=== PATIENT | male | born 1985 | race Caucasian/White ===

== ENCOUNTER 2018-02-10 13:05 | Emergency (ER) | payer OTHER, MEDICAID, SELFPAY ==
[2018-02-10 13:06] VITALS: BP 139/76; PULSE 118; RESP 18; TEMP 37.1; O2SAT 96; BMI 42.4
--- NOTE | 2018-02-10 13:42 | ED.VISSUMM ---
- ER Visit Summary Date of Service: 02/10/18 Chief Complaint: Cellulitis History of Present Illness: The patient is a 32 M presenting with right upper extremity cellulitis. Patient states he noticed what he thought was a bite yesterday on his right elbow. He went to urgent care and was started on cephalexin. He states today he noted that the redness was spreading up his arm. He called his primary care physician's office and was advised to come to the ED for further evaluation. He has had temperatures up to 100.7 at home with chills. He is a diabetic. No other complaints. Physical Examination: Vitals are stable. Patient is afebrile. Alert no acute distress. HEENT exam is unremarkable. Neck is supple. Lungs are clear and equal bilaterally. Heart is regular rate and rhythm. Abdomen is soft nontender nondistended. Extremities erythema of right elbow with active full range of motion. No fluctuance. Mild proximal streaking. Neurovascularly intact distally. Skin is warm and dry. No focal neurologic deficit. Remainder of exam is unremarkable. Emergency Department Course and Treatment: Patient is given clindamycin IV. CBC, chemistries unremarkable other than glucose 184. Line is drawn around the redness with a skin marker. He is advised to watch for worsening redness. He is given a prescription for clindamycin. Advised follow-up with his primary care physician as scheduled at appointment tomorrow. Advised return to ED if worsening complaints. Disposition: Discharge home Impression: Right upper extremity cellulitis This note was generated with [employer] dictation software. It may contain incorrect words, spelling, and punctuation that were not noted in review of the chart prior to signing ED Disposition - Plan for ED Patient: Chief Complaint: Cellulitis Referrals: Nati Garrett, AMANDA-C [Primary Care Provider] -
[2018-02-10 14:03] LABS: Absolute Lymphocyte Count 1.91 X10^3/ul (0.83-4.51); Absolute Neutrophil Count 5.2 X10^3/uL (2.0-7.7); Basophil# 0.04 X10^3/uL; Basophil% 0.5 % (0-1); Eosinophils% 5.9 % (0-5); Hematocrit 48.9 % (40-54); Lymphocyte # 1.91 X10^3/ul (4.0); Lymphocyte % 22.4 % (19-41); Mean Corp Hgb Conc 34.8 g/gl (32-36); Mean Corpuscular Hgb 31.1 pg (27.0-32.0); Mean Corpuscular Volume 89.6 fL (80-94); Mean Platelet Vol. 11.1 fl (6.2-12.0); Monocyte# 0.85 X10^3/uL; Neutrophil # 5.18 X10^3/uL (2.7-7.7); Neutrophil % 60.8 % (47-70); Platelet Count 186 K/mm3 (150-450); RBC Distribution Width CV 12.6 % (11.6-14.6); RBC Distribution Width SD 40.6 fl (35.1-43.9); Red Blood Count 5.46 M/mm3 (4.6-6.2); White Blood Count 8.5 K/mm3 (4.4-11.0)
[2018-02-10 14:04] LABS: POSITIVE COUNT NO; POSITIVE DIFFERENTIAL NO; POSITIVE MORPHOLOGY NO
[2018-02-10 14:18] LABS: Anion Gap 6 (5-15); BUN 8 mg/dL (7-18); BUN/Creat Ratio 8.5 RATIO (10-20); Chloride 103 mmol/L (98-107); Creatinine, Serum 0.94 mg/dL (0.70-1.30); EST Glomerular Filtration Rate 100 mL/min (>60); Est Glom Filt Rate - Afr Amer 121 mL/min (>60); Estimated Creatinine Clearance 111.17 ml/min; Glucose 184 mg/dL (74-106); Potassium 3.9 mmol/L (3.5-5.1); Sodium Level 138 mmol/L (136-145)
[2018-02-10 15:23] VITALS: BP 147/73; PULSE 102; RESP 20; O2SAT 98
--- NOTE | 2018-02-10 15:44 | ED.DEP ---
ED Disposition - Plan for ED Patient: Chief Complaint: Cellulitis Instructions: Discharge Instructions for Cellulitis Prescriptions: Clindamycin [Cleocin] 300 mg PO 4X/DAY #80 capsule Referrals: Nati Garrett NP-C [Primary Care Provider] -
== END 2018-02-10 17:22 | disposition home or self-care (01) ==
LOC: ED 13:29
PROVIDERS: Emergency Provider Emergency Medicine; Family Provider Nurse Practitioner Adult Health; PCP Nurse Practitioner Adult Health
DX: L03.113 Cellulitis of right upper limb (principal); E11.9 Type 2 diabetes mellitus without complications
CPT/HCPCS: 80048; 85025; 96365; 99283; A4216

== ENCOUNTER 2018-06-09 06:36 | Day surgery (SDC) | payer OTHER, SELFPAY ==
[2018-06-09] MEDS: Oxymetazoline 0.05% 1 SPRAY SPRAY.BTL 15 SPRAY (07:08)
[2018-06-09] MEDS: Ciprofloxacin 0.3% 2.5ml Bottle 1 DRP (07:08)
[2018-06-09 07:25] VITALS: BP 140/96; PULSE 96; RESP 16; TEMP 36.6; O2SAT 96; BMI 41.1
[2018-06-09 07:40] LABS: Bedside Glucose 140 mg/dL (70-110)
--- NOTE | 2018-06-09 08:03 | DCINST_ITS ---
You will use the following diet at home:: No restrictions Discharge Activity: Return to Normal Activity Additional Dressing/Incision Instructions:: use the given ear drops in the left ear - 3 drops twice daily for 48 hrs Allergies/Adverse Reactions: Allergies No Known Allergies Allergy (Verified 06/02/18 14:39) Medications to take at Discharge Aspirin E.C. [Ecotrin] 81 mg PO DAILY@0800 06/02/18 Bupropion HCl [Bupropion HCl Sr] 150 mg PO DAILY 06/02/18 Lisinopril [Prinivil] 10 mg PO DAILY 06/02/18 Meloxicam [Mobic] 7.5 mg PO DAILY 06/02/18 Metformin HCl [Glucophage] 1,000 mg PO BIDCM 06/02/18 Pravastatin Sodium 40 mg PO DAILY 06/02/18 Sitagliptin Phosphate [Januvia] 50 mg PO DAILY 06/02/18 Primary Care Physician: Nati Garrett NP-C [Primary Care Provider] - Test Results: Test results from this visit will be discussed in further detail at your follow- up appointment, if applicable. Please Follow Up With: Pierce Suárez MD When: 3 weeks
--- NOTE | 2018-06-09 08:03 | PCM.OPRPT ---
Problem List (1) Chronic serous otitis media of left ear Status: Chronic (2) Eustachian tube dysfunction Status: Chronic Report of Operation Date of Procedure: 06/09/18 Pre-Operative Diagnosis: 1. chronic serous otitis, left ear. 2. eustachian tube dysfunction, left ear Post-Operative Diagnosis: 1. chronic serous otitis, left ear. 2. eustachian tube dysfunction, left ear Surgery/Procedure Performed:: 1. placement pressure equalization tube, left ear. 2. eustachian tube dilation, left ear Type of Anesthesia:: General Description of Procedure: on the day of the procedure, after appropriate informed consent was obtained, the patient was brought to the operating room and placed in supine position on the operating table. he was placed under general endotracheal anesthesia by the anesthesiologist. the tube was secured, the eyes were taped. the left ear was examined by the binocular operating microscope. a speculum was placed. the tympanic membrane was viewed in its entirety and found to be intact. the tympanic membrane was adherent to the promontory. a large mucoid effusion was suctioned and T-tube was placed. the nose was decongested with oxymetazoline soaked pledgets. a zero degree endoscope was inserted into the left nasal cavity and the eustachian tube orifice was visualized. the acclarent AERA system was advanced gently into the eustachian tube with no resistance until a soft stop was felt. it was inflated to 12 samir for 2 minutes. the balloon was deflated and retracted. there was no false passage. the patient was awoken from anesthesia and transferred to the PACU in stable condition.
[2018-06-09 08:28] VITALS: BP 123/85; BP 140/96; PULSE 108; RESP 20; TEMP 36.5; O2SAT 97
[2018-06-09 08:43] VITALS: BP 120/89; BP 140/96; PULSE 82; RESP 18; O2SAT 94
[2018-06-09 08:58] VITALS: BP 120/81; BP 140/96; PULSE 86; RESP 18; O2SAT 95
[2018-06-09 09:03] VITALS: BP 120/77; BP 140/96; PULSE 90; RESP 18; TEMP 36.8; O2SAT 93
[2018-06-09 09:31] VITALS: BP 140/96
== END 2018-06-09 09:32 | disposition home or self-care (01) ==
LOC: SDC 06:39 → AC 06:40
PROVIDERS: Family Provider Nurse Practitioner Adult Health; PCP Nurse Practitioner Adult Health; Referring Provider Otolaryngology; Visit Provider Otolaryngology
PROC: (CPT 69799; principal; 2018-06-09 07:55)
DX: H65.22 Chronic serous otitis media, left ear (principal); H69.82 Other specified disorders of Eustachian tube, left ear; E78.00 Pure hypercholesterolemia, unspecified; E11.9 Type 2 diabetes mellitus without complications; F32.9 Major depressive disorder, single episode, unspecified; Z79.899 Other long term (current) drug therapy; Z79.82 Long term (current) use of aspirin; Z79.84 Long term (current) use of oral hypoglycemic drugs; I10 Essential (primary) hypertension; F17.210 Nicotine dependence, cigarettes, uncomplicated; H90.0 Conductive hearing loss, bilateral
CPT/HCPCS: 00126; 69436; 82962; J7120; J2405

== ENCOUNTER 2022-12-23 09:51 | Emergency (ER) | payer OTHER, SELFPAY ==
[2022-12-23 09:53] VITALS: BP 141/91; PULSE 108; RESP 16; TEMP 35.6; O2SAT 100; BMI 42.3
--- NOTE | 2022-12-23 10:57 | ED.RN ---
PT REFUSED NORCO DUE TO NOT HAVING A RIDE
--- NOTE | 2022-12-23 11:09 | RAD_ITS ---
STUDY: X-RAY - PELVIS AND RIGHT HIP REASON FOR EXAM: Male, 37 years old. Right hip pain. No evidence of trauma. TECHNIQUE: 3 views of the pelvis and hip. COMPARISON: None. FINDINGS: There is a non-specific bowel gas pattern. Normal visualized soft tissue structures. Normal bilateral iliac wings, sacroiliac joints and visualized sacrum. Normal bilateral superior and inferior pubic rami. Normal pubic symphysis. Normal bilateral ischial tuberosities. Normal visualized femoral head. Normal acetabulum. Normal hip joint. Calcific density overlying the greater trochanter of the proximal right femur suggests a possible calcific bursitis. RAD/HIP, UNI W/ Pelvis 2-3 Views IMPRESSION: Findings suggestive of calcific bursitis over lying the right greater trochanter Electronically Signed: Cb Marinelli MD at 11:21 EDT ,
--- NOTE | 2022-12-23 11:51 | ED.VIS.LOWEX ---
HPI History of Present Illness HPI Narrative: Patient presents with right hip pain that began today. Patient states he woke up with the pain this morning. Patient denies any trauma or injury. Patient states the pain is sharp. Patient states pain is worse with any weightbearing. Patient states it is better with rest. Patient denies any paresthesias or weakness. Patient denies any back pain. Patient denies any radiation of the pain. Chief Complaint: Lower Extremity Injury Informant: patient Onset/Context/Timing Onset: Today Context: Sudden Onset Timing: Continuous Quality of Pain: Sharp Location: Right hip Worsened by: Weightbearing, certain movements Relieved by: Rest Associated Symptoms Associated Symptoms: Negative for Parasthesia, Weakness or Loss of Funtion [facility] Medical History (Updated 12/23/22 @ 11:[address] Dontae Silva DO) Diabetes Hypercholesterolemia Hypertension Medical History no medical history Home Medications aspirin 81 mg tablet,delayed release 81 mg PO DAILY@0800 06/02/18 [History Last Taken 05/18/18] bupropion HCl (smoking deter) 150 mg tablet,12 hr sustained-release(smoking deterrent) 150 mg PO DAILY 06/02/18 [History Last Taken Unknown] lisinopril 10 mg tablet (Prinivil) 10 mg PO DAILY 06/02/18 [History Last Taken Unknown] meloxicam 7.5 mg tablet 7.5 mg PO DAILY 06/02/18 [History Last Taken Unknown] metformin 500 mg tablet 1,000 mg PO BIDCM 06/02/18 [History Last Taken Unknown] pravastatin 40 mg tablet 40 mg PO DAILY 06/02/18 [History Last Taken Unknown] sitagliptin phosphate 50 mg tablet (Januvia) 50 mg PO DAILY 06/02/18 [History Last Taken Unknown] hydrocodone-acetaminophen 5-325mg 5mg-325mg 1 tab PO Q6H PRN PRN Pain 3 days #10 TABLETS 12/23/22 [Rx Last Taken Unknown] Allergy/AdvReac Type Severity Reaction Status Date / Time No Known Allergies Allergy Verified 06/02/18 14:39 Social History Smoking Status: Current every day smoker tobacco type: cigarettes ROS ROS ED Constitutional Constitutional ED: Denies chills or fever(s) Eyes Eyes: Denies blurry vision or change in vision ENT ENT ED: Denies rhinorrhea or sore throat Cardiovascular Cardiovascular: Denies chest pain or palpitations Respiratory/Chest Respiratory/Chest: Denies cough or dyspnea Gastrointestinal Gastrointestinal: Denies nausea or vomiting Genitourinary Genitourinary ED: Denies dysuria or hematuria Musculoskeletal Musculoskeletal: Denies back pain or neck pain Integumentary Denies abscess or rash Neurologic Neurologic: Denies headache(s) or weakness Allergic/Immunologic Allergic/Immunologic ED: Denies mouth swelling or urticaria EXAM Physical Exam Const Vital Signs: 12/23/22 09:53 Temperature 96.0 F L Temperature Source Temporal Pulse Rate 108 H Respiratory Rate 16 Blood Pressure 141/91 H Blood Pressure Mean 107 Pulse Ox 100 Oxygen Delivery Method Room Air Positive well nourished, well developed and obese General Appearance ED: well developed and NAD Nutritional Appearance: obese HEENT Reports moist mucous membranes Neck full ROM and supple Extremity Extremity Narrative: TenderThere is tenderness over the lateral aspect of the right hip. There is also tenderness in the right inguinal area. There is no mass noted. There is no hernia noted. There is no tenderness over the lumbar spine or paraspinal muscles. There is no bony crepitance or step-off. Range of motion was limited in all motions of the right hip secondary to pain. Strength is 5/5 bilaterally in the lower extremities. There are no sensory deficits noted. Pedal pulses are equal bilaterally. Neuro oriented x3, CN's II-XII intact bilaterally, moves all extremities and no sensory deficits noted Sensorium / Orientation: alert Motor Exam: strength 5/5 throughout MDM MDM MDM Narrative Medical decision making narrative: Differential diagnosis includes degenerative arthritis, bursitis, and occult fracture. X-rays of the right hip will be obtained to assess for occult fracture. Radiography Diagnostic Testing: Clinical Impression(s) from Imaging Studies Hip/Pelvis X-Ray 12/23/22 11:09 IMPRESSION: Findings suggestive of calcific bursitis over lying the right greater trochanter Electronically Signed: Cb Marinelli MD at 11:21 EDT , X-rays of the right hip were obtained. There are 3 views. On my independent interpretation, there is no acute fracture noted. There is no dislocation noted. Radiologist also interpreted the x-rays and noted findings suggestive of calcific bursitis over the right greater trochanter. Treatment and Re-Evaluation Narrative: Patient was advised of his findings. Patient was instructed use ice to the area. Patient was given a prescription for a short course of [place]. Patient was instructed to continue his meloxicam as prescribed. Patient was instructed to follow-up with his primary care physician in 5 to 7 days. Patient understood and was agreeable with the plan. All questions were answered. Discharge Plan Triage Chief Complaint: Lower Extremity Injury ED Provider: Dontae Silva Dx/Rx/DC Orders Clinical Impression: Greater trochanteric bursitis of right hip Instructions: ED Bursitis Prescriptions: New hydrocodone-acetaminophen [hydrocodone-acetaminophen] 5-325 mg tablet 1 tab PO Q6H PRN PRN (Reason: Pain) 3 Days Qty: 10 0RF No Action metformin 500 MG tablet 1,000 mg PO BIDCM pravastatin 40 MG tablet 40 mg PO DAILY aspirin 81 MG tablet 81 mg PO DAILY@0800 meloxicam 7.5 MG tablet 7.5 mg PO DAILY lisinopril [Prinivil] 10 MG tablet 10 mg PO DAILY sitagliptin phosphate [Januvia] 50 MG tablet 50 mg PO DAILY bupropion HCl (smoking deter) 150 MG tablet extended release 12 hr 150 mg PO DAILY Primary Care Provider: Daryl Michael Referrals: Daryl Michael DO [Primary Care Provider] - 5-7 Days Disposition Disposition: Home, Self Care
== END 2022-12-23 12:09 | disposition home or self-care (01) ==
PROVIDERS: Emergency Provider Emergency Medicine; PCP Student in an Organized Health Care Education/Training Program; Visit Provider Emergency Medicine
DX: M70.61 Trochanteric bursitis, right hip (principal); E11.9 Type 2 diabetes mellitus without complications; E78.00 Pure hypercholesterolemia, unspecified; F17.210 Nicotine dependence, cigarettes, uncomplicated; I10 Essential (primary) hypertension; Z79.899 Other long term (current) drug therapy; Z79.84 Long term (current) use of oral hypoglycemic drugs
CPT/HCPCS: 73502; 99283

== ENCOUNTER 2024-01-22 23:36 | Emergency (ER) | payer OTHER, SELFPAY ==
[2024-01-22 23:36] VITALS: BP 129/87; PULSE 96; RESP 20; TEMP 36.3; O2SAT 96; BMI 43.4
--- NOTE | 2024-01-23 00:20 | ED.VIS.BACK ---
HPI History of Present Illness Chief Complaint: Flank Pain Informant: patient Onset/Context/Timing Onset: Yesterday Context: Sudden Onset (while sitting at work) Timing: Continuous Quality: Aching Location: Lumbar (middle and left by my kidney) Current Severity: Moderate Maximum Severity: Moderate Worsened by: improves with Movement Relieved by: Remaining Still Associated Symptoms Associated Symptoms: Negative for Numbness, Tingling, Radiation to Right Leg, Radiation to Left Leg, Abdominal Pain, Dysuria, Unable to Ambulate, Unable to Transfer, Urinary Retention, Urinary Incontinence, Constipation or Fecal Incontinence Narrative Narrative: 38-year-old male states yesterday 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 He states it was more to the left by his kidney, but all day today it has been more toward the middle. It hurts a lot more to move in certain ways and is better when he is remaining still. There is no radiation to his flank or abdomen and he has no urinary symptoms. He is concerned as is his kidney and that he has a kidney stone. There is no radiation down his legs, saddle anesthesia, bowel or bladder dysfunction. [facility] Medical History Hypercholesterolemia Hypertension Diabetes Home Medications ?Medication ?Instructions ?Recorded ?Last Taken ?Type aspirin 81 mg tablet,delayed 81 mg PO DAILY@0800 06/02/18 05/18/18 History release bupropion HCl (smoking deter) 150 150 mg PO DAILY 06/02/18 Unknown History mg tablet,12 hr sustained-release(smoking deterrent) lisinopril 10 mg tablet (Prinivil) 10 mg PO DAILY 06/02/18 Unknown History meloxicam 7.5 mg tablet 7.5 mg PO DAILY 06/02/18 Unknown History metformin 500 mg tablet 1,000 mg PO BIDCM 06/02/18 Unknown History pravastatin 40 mg tablet 40 mg PO DAILY 06/02/18 Unknown History sitagliptin phosphate 50 mg tablet 50 mg PO DAILY 06/02/18 Unknown History ([place]uvia) hydrocodone-acetaminophen 5-325mg 1 tab PO Q6H PRN PRN Pain 3 days 12/23/22 Unknown Rx 5mg-325mg #10 TABLETS naproxen 500 mg tablet 500 mg PO BID PRN #20 tabs 01/23/24 Unknown Rx Allergy/AdvReac Type Severity Reaction Status Date / Time No Known Allergies Allergy Verified 01/22/24 23:38 Social History Smoking Status: Current every day smoker tobacco type: cigarettes ROS ROS ED Constitutional Constitutional ED: Denies chills or fever(s) Eyes Eyes: Denies change in vision or diplopia ENT ENT ED: Denies rhinorrhea or sore throat Cardiovascular Cardiovascular: Denies chest pain or palpitations Respiratory/Chest Respiratory/Chest: Denies cough or dyspnea Gastrointestinal Gastrointestinal: Denies abdominal pain, diarrhea, nausea or vomiting Genitourinary Genitourinary ED: Denies dysuria or hematuria Musculoskeletal Musculoskeletal: Reports back pain; Denies neck pain Integumentary Denies abscess or rash Neurologic Neurologic: Denies headache(s), paresthesias or weakness Psychiatric Psychiatric: Denies anxiety or suicidal thoughts EXAM Physical Exam Const Vital Signs: 01/22/24 23:36 Temperature 97.4 F L Temperature Source Temporal Pulse Rate 96 Respiratory Rate 20 H Blood Pressure 129/87 H Blood Pressure Mean 101 Pulse Ox 96 Oxygen Delivery Method Room Air Positive well nourished and well developed General Appearance ED: well developed and NAD HEENT Reports moist mucous membranes normocephalic and atraumatic Eyes PERRL and EOMs intact bilaterally Neck full ROM and supple Resp clear to auscultation bilaterally Back/Spine no CVA tenderness, normal to inspection and no thoracic nor lumbar tenderness General Back: other FROM Extremity normal to inspection General Extremety ED: Negative for edema General Extremity: Negative for edema Neuro oriented x3, CN's II-XII intact bilaterally and no sensory deficits noted Sensorium / Orientation: awake and alert Motor Exam: strength 5/5 throughout Skin no rashes or lesions noted and no wounds MDM MDM MDM Narrative Medical decision making narrative: Given that this patient has significant musculoskeletal features of this pain, I think this is much less likely to be renal related or urolithiasis/renal colic. I did a screening urinalysis, it shows no microscopic hematuria or red blood cells, just glycosuria. Meanwhile he was given a dose of Toradol which she states really helped. I offered a dose of Norflex but he drove and does not want to feel sleepy. He states he has cyclobenzaprine at home to use and it has worked for muscle spasms in the past which it sounds like he is having. Given a prescription of naproxen. Meloxicam is on his medication list I am advising him to not take both at the same time, and to follow-up with his doctor. Sacroiliac dysfunction is in the differential diagnosis as well, especially since I am not able to reproduce the pain on exam which is common with sacroiliac dysfunction. Lab Data Attestation: I reviewed the patient's lab results. Labs: Laboratory Results - last 24 hr 01/22/24 23:51 Urine Color Yellow Urine Clarity Clear Urine pH 8.0 Ur Specific [place] 1.015 Urine Protein Negative Urine Glucose (UA) 1000 H Urine Ketones Negative Urine Occult Blood Negative Urine Nitrite Negative Urine Bilirubin Negative Urine Urobilinogen Normal Ur Leukocyte Esterase Negative Urine RBC 0 SEEN Urine WBC 0 SEEN Ur Squamous Epith Cells 0-5 SEEN Urine Bacteria 0 SEEN Urine Mucus 0 SEEN Discharge Plan Triage Chief Complaint: Flank Pain ED Provider: Christos Dodge Dx/Rx/DC Orders Clinical Impression: Acute lumbar myofascial strain Instructions: Understanding Sacroiliac Strain, ED Back Sprain/Strain Prescriptions: New naproxen 500 mg tablet 500 mg PO BID PRN Qty: 20 0RF Continued metformin 500 MG tablet 1,000 mg PO BIDCM pravastatin 40 MG tablet 40 mg PO DAILY aspirin 81 MG tablet 81 mg PO DAILY@0800 lisinopril [Prinivil] 10 MG tablet 10 mg PO DAILY sitagliptin phosphate [Januvia] 50 MG tablet 50 mg PO DAILY bupropion HCl (smoking deter) 150 MG tablet extended release 12 hr 150 mg PO DAILY hydrocodone-acetaminophen 5-325 mg tablet 1 tab PO Q6H PRN PRN (Reason: Pain) 3 Days Qty: 10 0RF Held meloxicam 7.5 MG tablet 7.5 mg PO DAILY Hold Instructions: While taking prescription naproxen Primary Care Provider: Daryl Michael Referrals: Daryl Michael DO [Primary Care Provider] - 1 Week if not improving Print Language: Romansh Disposition Disposition: Home, Self Care
[2024-01-23 00:24] LABS: Bacteria 0 SEEN /hpf (None Seen); Mucous, Urine 0 SEEN /hpf (<or=2+); Red Blood Cells-Urine 0 SEEN /hpf (0-5); White Blood Cells 0 SEEN /hpf (0-5)
[2024-01-23] MEDS: Ketorolac 30 MG/ML Syringe IV (00:25)
[2024-01-23 00:27] LABS: Color, Urine Yellow (Yellow); Glucose, Dipstick 1000 mg/dl (Normal); Ketone-Dipstick Negative (Negative); Leukocyte Esterase-Dipstick Negative /ul (Negative); Nitrite-Dipstick Negative (Negative); Occult Blood-Urine Negative /ul (Negative); Protein-Dipstick Negative (Negative); Specific Gravity, Urine 1.015 (1.002-1.030); Urine Bilirubin Dipstick Negative (Negative); Urine Clarity Clear (Clear); Urine Urobilinogen Normal (Normal)
[2024-01-23 01:11] LABS: Squamous Epithelial Cells - UA 0-5 SEEN /hpf (0-5)
== END 2024-01-23 02:23 | disposition home or self-care (01) ==
PROVIDERS: Emergency Provider Emergency Medicine; PCP Student in an Organized Health Care Education/Training Program; Visit Provider Emergency Medicine
DX: S39.012A Strain of muscle, fascia and tendon of lower back, initial encounter (principal); E11.9 Type 2 diabetes mellitus without complications; F17.210 Nicotine dependence, cigarettes, uncomplicated; E78.00 Pure hypercholesterolemia, unspecified; Z79.82 Long term (current) use of aspirin; Z79.899 Other long term (current) drug therapy; Z79.84 Long term (current) use of oral hypoglycemic drugs
CPT/HCPCS: 81001; 96374; 99282; A4216

== ENCOUNTER 2024-06-14 23:11 | Emergency (ER) | payer OTHER, SELFPAY ==
[2024-06-14 23:12] VITALS: BP 138/87; PULSE 108; RESP 16; TEMP 36.6; O2SAT 98; BMI 40.8
--- NOTE | 2024-06-15 00:07 | EDS_ITS ---
HPI History of Present Illness Chief Complaint: General Illness [facility] Medical History (Updated 06/14/24 @ 23:34 by Destiny Pérez) Alcohol abuse Marijuana smoker Hypercholesterolemia Hypertension Diabetes Home Medications ?Medication ?Instructions ?Recorded ?Last Taken ?Type bupropion HCl (smoking deter) 150 150 mg PO DAILY 06/02/18 Unknown History mg tablet,12 hr sustained-release(smoking deterrent) metformin 500 mg tablet 1,000 mg PO BIDCM 06/02/18 Unknown History pravastatin 40 mg tablet 40 mg PO DAILY 06/02/18 Unknown History dulaglutide 1.5 mg/0.5 mL 1.5 mg subcut QWEEK 06/14/24 06/14/24 History subcutaneous pen injector (Trulicity) lisinopril 10 mg tablet 10 mg PO DAILY 06/14/24 Unknown History Allergy/AdvReac Type Severity Reaction Status Date / Time No Known Allergies Allergy Verified 06/14/24 23:16 Social History Smoking Status: Current every day smoker tobacco type: cigarettes EXAM Physical Exam Const Vital Signs: 06/14/24 23:12 06/14/24 23:30 06/15/24 01:12 Temperature 97.8 F Temperature Source Oral Pulse Rate 108 H 87 Respiratory Rate 16 18 Respiratory Effort Normal Non-Labored Respiratory Pattern Normal Blood Pressure 138/87 H 145/75 H Blood Pressure Mean 104 98 Pulse Ox 98 97 Oxygen Delivery Method Room Air Room Air 06/15/24 02:10 06/15/24 02:16 06/15/24 02:30 Temperature Temperature Source Pulse Rate 67 Respiratory Rate 18 Respiratory Effort Respiratory Pattern Blood Pressure 129/76 H Blood Pressure Mean 90 Pulse Ox 97 94 Oxygen Delivery Method Room Air Room Air 06/15/24 04:00 06/15/24 05:17 Temperature 98 F Temperature Source Pulse Rate 75 86 Respiratory Rate 12 14 Respiratory Effort Respiratory Pattern Blood Pressure 130/86 H 121/77 H Blood Pressure Mean 100 91 Pulse Ox 95 96 Oxygen Delivery Method Room Air MDM MDM MDM Narrative Medical decision making narrative: HISTORY OF PRESENT ILLNESS: 38-year-old male presents with lightheadedness, dizziness, nausea, anxiety and feeling foggy for the last 3 weeks. He further states today developed chest tightness which prompted his visit. Denies syncope. The patient denies recent surgery in the last 4 weeks or immobilization in the last 3 days, denies previous diagnosis of DVT or PE, hemoptysis, unilateral leg swelling or malignancy with treatment the last 6 months or palliative. No estrogen use noted. Patient denies sudden onset of pain, no tearing sensation, no migratory symptoms, no new numbness, weakness or loss of sensation. Patient denies family history or personal history of Connective tissue disorders (Marfan's Syndrome, Ernie Danlos etc). Denies cough fever chills. Denies leg swelling, orthopnea or paroxysmal nocturnal dyspnea. No SI, no HI. Denies focal numbness weakness loss sensation slurred speech or facial drooping. REVIEW OF SYSTEMS: Pertinent positives: Chest tightness Pertinent negatives: Syncope, focal weakness, vomiting, cough, leg swelling PHYSICAL EXAM: Nursing triage notes reviewed, Vital signs reviewed Constitutional: please see mdm HENT: MMM Eyes: Pupils equal round and reactive to light, Extraocular muscles intact Neck: No stridor, no JVD, full neck ROM Lungs: Clear to auscultation, No wheezing or rales. No increased work of breathing, no conversational dyspnea, no accessory muscle use, no nasal flaring. No respiratory distress noted Heart: Regular rate and rhythm, No murmurs, No rubs and No gallops, 2+ distal pulses (radial, femoral, posterior tibial) in all extremities Abdomen: Soft, there is no tenderness, rigidity, rebound or guarding, no obvious peritoneal signs, no palpable pulsatile abdominal masses, no auscultated abdominal bruit : No CVAT Extremities: No edema Neuro: Alert and oriented x3, neuro exam at baseline, cranial nerves II through XII are intact. No pain with extraocular muscle movement. There is negative test of skew. 5 of 5 strength in upper and lower extremities in flexion extension. Intact sensation to light touch in upper and lower extremity dermatomes. No truncal or extremity ataxia. No dysdiadochokinesia. Normal gait. 2+ reflexes in upper and lower extremities. No meningeal signs. Negative Babinski. NIH of 0. Skin: No rash or lesions noted MEDICAL DECISION MAKING: Chief Complaint: As per HPI External records reviewed: Reviewed the patient's allergies, problem list, vital signs, current medications, prior cardiovascular testing, prior imaging Factors affecting care: Hypertension, type 2 diabetes, hyperlipidemia Social determinants of health: none History obtained from others: none Consults: none [facility] Narrative: Patient was initially tachycardic rate of 108 otherwise afebrile and nontoxic- appearing. Exam without focal cardiopulmonary abnormality. I considered the following differential diagnosis: ACS, arrhythmia, anemia, dehydration, electrolyte disturbance, CVA, PE, aortic dissection. Posterior circulation CVA. Patient's history and physical exam ar were not consistent with PE or aortic dissection. No indication for advanced imaging of the chest at this time Patient's clinical exam was not consistent with posterior cervical CVA. NIH was 0 Patient's clinical exam was unremarkable I obtained a broad lab and imaging workup to further elucidate the etiology of the patient's complaints ALL IMAGES (IF OBTAINED) HAVE BEEN PERSONALLY REVIEWED AND INTERPRETED BY MYSELF. EKG with normal sinus rhythm, normal axis, no intervals, no STEMI High-sensitivity troponin is negative, no evidence of myocardial ischemia CBC without leukocytosis, severe anemia, no thrombocytopenia. BMP without evidence of significant electrolyte abnormalities, no anion gap, no acute kidney injury. High-sensitivity troponin is negative, no evidence of myocardial ischemia Awaiting delta troponin, delta troponin negative as well On Re-evaluation the patient's initial tachycardia resolved. Chest pain-free. Unclear etiology however unlikely be life-threatening given negative labs images. Patient was given PCP follow-up for further outpatient evaluation. The patient and/or family, caregivers express understanding. The patient and/or family, caregivers agrees with the plan. Shared decision making: I will have a discussion with the patient and or visitors regarding risk/benefi ts of further testing or admission. They will be made aware of of the risk/benefits inherent in this decision they will be given the opportunity to voice understanding. Total critical care time today provided was at least 0 minutes. This excludes separately billable procedures. Critical care time (if documented) is secondary to the patient having high probability of clinically significant/life threatening deterioration in the patient's condition which required my urgent intervention. Impression: 1. Chest pain 2. History of hypertension Dispo: Discharge home This note was generated with [employer] dictation software. It may contain incorrect words, spelling, and punctuation that were not noted in review of the chart prior to signing. Lab Data Labs: Laboratory Results - last 24 hr 06/15/24 06/15/24 02:13 04:19 WBC 7.6 RBC 5.48 Hgb 16.9 H Hct 48.7 MCV 88.9 MCH 30.8 MCHC 34.7 RDW Std Deviation 38.4 RDW Coeff of Camille 11.8 Plt Count 201 MPV 11.0 Immature Gran % (Auto) 0.500 Neut % (Auto) 41.9 L Lymph % (Auto) 37.8 Swisher % (Auto) 13.4 H Eos % (Auto) 5.5 H Baso % (Auto) 0.9 Absolute Neuts (auto) 3.2 Absolute Lymphs (auto) 2.89 Nucleated RBC % 0 Sodium 137 Potassium 3.8 Chloride 106 Carbon Dioxide 28.0 Anion Gap 3 L BUN 11 Creatinine 0.77 Estim Creat Clear Calc 168.44 Est GFR (MDRD) Af Amer 146 Est GFR (MDRD) Non-Af 121 BUN/Creatinine Ratio 14.2 Glucose 101 Calcium 9.2 Troponin I High Sens 4 4 Radiography Diagnostic Testing: Clinical Impression(s) from Imaging Studies Chest X-Ray 06/15/24 01:01 IMPRESSION: Low lung volumes limit the exam. No acute cardiopulmonary abnormality. Electronically Signed: Vladimir Nogueira MD at 2:44 EDT , Discharge Plan Triage Chief Complaint: General Illness ED Provider: Jacob Munguia Dx/Rx/DC Orders Instructions: Chest Pain [facility] Prescriptions: No Action metformin 500 MG tablet 1,000 mg PO BIDCM pravastatin 40 MG tablet 40 mg PO DAILY bupropion HCl (smoking deter) 150 MG tablet extended release 12 hr 150 mg PO DAILY lisinopril 10 mg tablet 10 mg PO DAILY Trulicity 1.5 mg/0.5 mL pen injector 1.5 mg subcut QWEEK Primary Care Provider: Daryl Michael Referrals: Daryl Michael DO [Primary Care Provider] - Activity Restrictions/Additional Instructions: Thank you for trusting us with your care today! Your labs images were reassuring. There is no emergency diagnosis that can be identified. The ultimate cause your symptoms remains unclear. Please take Tylenol (2 pills, 650 mg), ibuprofen (2 pills, 400 mg) every 6 hours as needed for pain and fever control. Please return to the emergency department if your symptoms change or worsen. Please follow with your primary care physician for further outpatient evaluation and management. Print Language: Nauruan Disposition Disposition: Home, Self Care Discharge Date/Time: 06/15/24 05:23
--- NOTE | 2024-06-15 01:01 | EKG12_ITS ---
Test Reason : DYSRHYTHMIA Blood Pressure : */* mmHG Vent. Rate : 84 BPM Atrial Rate : 84 BPM P-R Int : 184 ms QRS Dur : 86 ms QT Int : 368 ms P-R-T Axes : 35 23 49 degrees QTcB Int : 434 ms Normal sinus rhythm Normal ECG Confirmed by ANTHONY MORALES, ETHAN ([id number]), acquisitions editor EDILSON REYES ([id number]) on 06/15/2024 1:11:54 PM Referred By: RENATA Confirmed By: ETHAN CRUZ MD
--- NOTE | 2024-06-15 01:01 | RAD_ITS ---
EXAM: XR CHEST, 1 VIEW CLINICAL INDICATION: chest pain TECHNIQUE: Frontal view of the chest. COMPARISON: No relevant prior studies available. FINDINGS: LUNGS AND PLEURAL SPACES: Low lung volumes limit the exam. No consolidations. No pneumothorax. No effusion. HEART: Unremarkable. Cardiac silhouette not enlarged. MEDIASTINUM: Central airways and mediastinal contour are unremarkable. BONES/JOINTS: Unremarkable. No acute fracture. SOFT TISSUES: Unremarkable. RAD/Chest 1 View (Portable) IMPRESSION: Low lung volumes limit the exam. No acute cardiopulmonary abnormality. Electronically Signed: Vladimir Nogueira MD at 2:44 EDT ,
[2024-06-15 01:12] VITALS: BP 145/75; PULSE 87; RESP 18; O2SAT 97
[2024-06-15 02:16] VITALS: O2SAT 97
[2024-06-15 02:18] LABS: Absolute Lymphocyte Count 2.89 X10^3/uL (0.83-4.51); Absolute Neutrophil Count 3.2 X10^3/uL (2.0-7.7); Basophil# 0.07 X10^3/uL; Basophil% 0.9 % (0-1); Eosinophil# 0.42 X10^3/uL; Eosinophils% 5.5 % (0-5); Hematocrit 48.7 % (40-54); Hemoglobin 16.9 g/dL (13.0-16.5); Lymphocyte # 2.89 X10^3/ul (0.83-4.51); Lymphocyte % 37.8 % (19-41); Mean Corp Hgb Conc 34.7 g/dL (32-36); Mean Corpuscular Hgb 30.8 pg (27.0-32.0); Mean Corpuscular Volume 88.9 fL (80-94); Monocyte# 1.02 X10^3/uL; Monocyte% 13.4 % (0-10); NRBC Flagged by Analyzer 0 % (0-5); Neutrophil % 41.9 % (47-70); Platelet Count 201 K/mm3 (150-450); RBC Distribution Width CV 11.8 % (11.6-14.6); RBC Distribution Width SD 38.4 fl (35.1-43.9); Red Blood Count 5.48 M/mm3 (4.6-6.2); White Blood Count 7.6 K/mm3 (4.4-11.0)
[2024-06-15 02:30] VITALS: BP 129/76; PULSE 67; RESP 18; O2SAT 94
[2024-06-15 02:37] LABS: Anion Gap 3 (5-15); BUN 11 mg/dL (7-18); BUN/Creat Ratio 14.2 RATIO (10-20); Calcium,Total 9.2 mg/dL (8.5-10.1); Chloride 106 mmol/L (98-107); Creatinine, Serum 0.77 mg/dL (0.70-1.30); EST Glomerular Filtration Rate 121 mL/min (>60); Est Glom Filt Rate - Afr Amer 146 mL/min (>60); Estimated Creatinine Clearance 168.44 ml/min; Glucose 101 mg/dL (74-106); Potassium 3.8 mmol/L (3.5-5.1); Sodium Level 137 mmol/L (136-145); Troponin-I HS (w/2H Reflex) 4 pg/mL (3.0-78.0)
[2024-06-15 04:00] VITALS: BP 130/86; PULSE 75; RESP 12; O2SAT 95
[2024-06-15 04:15] LABS: Reflex Troponin-HS? (from REC) Y
[2024-06-15 04:41] LABS: Troponin-I HS 4 pg/mL (3.0-78.0)
[2024-06-15 05:17] VITALS: BP 121/77; PULSE 86; RESP 14; TEMP 36.6; O2SAT 96
== END 2024-06-15 05:23 | disposition home or self-care (01) ==
PROVIDERS: Emergency Provider Emergency Medicine; PCP Student in an Organized Health Care Education/Training Program; Visit Provider Emergency Medicine
DX: R07.9 Chest pain, unspecified (principal); E11.9 Type 2 diabetes mellitus without complications; F41.9 Anxiety disorder, unspecified; I10 Essential (primary) hypertension; E78.00 Pure hypercholesterolemia, unspecified; Z79.84 Long term (current) use of oral hypoglycemic drugs; Z79.899 Other long term (current) drug therapy; Z79.85 Long-term (current) use of injectable non-insulin antidiabetic drugs; F17.210 Nicotine dependence, cigarettes, uncomplicated
CPT/HCPCS: 71045; 80048; 84484; 85025; 93005; 99284; A4216

== ENCOUNTER 2024-07-02 18:18 | Emergency (ER) | payer OTHER, SELFPAY ==
[2024-07-02 18:19] VITALS: BP 127/79; PULSE 102; RESP 16; TEMP 36.7; O2SAT 98; BMI 41.2
--- NOTE | 2024-07-02 18:37 | US_ITS ---
INDICATION: PAIN -- Right upper quadrant pain with a clinical Humphrey s EXAMINATION: Ultrasound US Gallbladder (abdomen limited) TECHNIQUE: Kumar scale and color doppler imaging was performed of the right upper quadrant. COMPARISON: None. FINDINGS: LIVER: Diffuse increased echogenicity. Hepatomegaly with the right lobe length measuring 18.3 cm. No evidence of a mass. No intrahepatic duct dilation. GALLBLADDER: Contracted. Sludge is present. No evidence of a gallstone. Normal wall thickness. No pericholecystic fluid. Negative sonographic Humphrey''s sign. COMMON BILE DUCT: Normal measuring 2 mm in diameter. PANCREAS: Not well-visualized due to overlying bowel gas. RIGHT KIDNEY: Unremarkable. FREE FLUID: No free fluid in the right upper quadrant. US/Gallbladder IMPRESSION: 1. Gallbladder sludge with no evidence of a gallstone and no evidence of cholecystitis. 2. Fatty infiltration of the liver and hepatomegaly. Electronically Signed: Ramin Ansari DO at 23:29 EST ,
[2024-07-02 19:19] LABS: Absolute Lymphocyte Count 2.46 X10^3/uL (0.83-4.51); Basophil# 0.09 X10^3/uL; Basophil% 1.1 % (0-1); Eosinophil# 0.51 X10^3/uL; Eosinophils% 6.4 % (0-5); Hematocrit 50.7 % (40-54); Hemoglobin 17.4 g/dL (13.0-16.5); Lymphocyte # 2.46 X10^3/ul (0.83-4.51); Mean Corp Hgb Conc 34.3 g/dL (32-36); Mean Corpuscular Hgb 30.8 pg (27.0-32.0); Mean Corpuscular Volume 89.7 fL (80-94); Mean Platelet Vol. 11.5 fl (6.2-12.0); Monocyte# 0.87 X10^3/uL; NRBC Flagged by Analyzer 0 % (0-5); Neutrophil # 3.96 X10^3/uL (2.7-7.7); Neutrophil % 49.9 % (47-70); Platelet Count 203 K/mm3 (150-450); RBC Distribution Width CV 11.9 % (11.6-14.6); RBC Distribution Width SD 39.1 fl (35.1-43.9); Red Blood Count 5.65 M/mm3 (4.6-6.2); White Blood Count 7.9 K/mm3 (4.4-11.0)
[2024-07-02 19:35] LABS: Anion Gap 3 (5-15); BUN 14 mg/dL (7-18); BUN/Creat Ratio 13.9 RATIO (10-20); Calcium,Total 8.4 mg/dL (8.5-10.1); Chloride 108 mmol/L (98-107); Creatinine, Serum 1.01 mg/dL (0.70-1.30); EST Glomerular Filtration Rate 89 mL/min (>60); Est Glom Filt Rate - Afr Amer 107 mL/min (>60); Estimated Creatinine Clearance 129.12 ml/min; Glucose 140 mg/dL (74-106); Lipase 51 U/L (13-75); Potassium 3.8 mmol/L (3.5-5.1); Sodium Level 139 mmol/L (136-145)
--- NOTE | 2024-07-02 20:09 | EX.ED.DYSGE1 ---
HPI History of Present Illness Chief Complaint: Abd Pain Detail of Chief Complaint: Abrupt onset of right sided upper abdominal pain Informant: patient Onset/Context/Timing Onset: Yesterday Context: Sudden Onset Timing: Continuous Quality: Pain is waxing and waning discomfort Location: Localizes from the mid anterior clavicular line to the mid axillary line Current Severity: Moderate Maximum Severity: Severe Worsened by: Nothing specific Relieved by: nothing Associated Symptoms Associated Symptoms: Nausea Narrative Narrative: patient had chips at approximately 1600. Patient denies intolerance to greasy or fried foods. There is no family history to his knowledge of cholelithiasis. Patient denies fever, chills night sweats. Patient Nuys cough, shortness of breath difficulty breathing. Patient Nuys pleuritic pain. Patient Nuys anterior chest pain. Patient denies fever, chills night sweats. Patient denies upper respiratory infectious symptoms. Patient denies dysuria, frequency, urgency or hematuria. No history of renal ureterolithiasis. Patient does endorse pain radiating through to his back. There is no history of direct or indirect trauma. Patient has not noted a rash. Patient denies having this pain before. Prior similar symptoms: No Recent Illness/Hospitalization: No [facility] Medical History Alcohol abuse Marijuana smoker Hypercholesterolemia Hypertension Diabetes Home Medications ?Medication ?Instructions ?Recorded ?Last Taken ?Type bupropion HCl (smoking deter) 150 150 mg PO DAILY 06/02/18 Unknown History mg tablet,12 hr sustained-release(smoking deterrent) metformin 500 mg tablet 1,000 mg PO BIDCM 06/02/18 Unknown History pravastatin 40 mg tablet 40 mg PO DAILY 06/02/18 Unknown History dulaglutide 1.5 mg/0.5 mL 1.5 mg subcut QWEEK 06/14/24 06/14/24 History subcutaneous pen injector (Trulicity) lisinopril 10 mg tablet 10 mg PO DAILY 06/14/24 Unknown History clotrimazole-betamethasone 1 1 applic topical BID 07/02/24 Unknown History %-0.05 % topical cream dapagliflozin propanediol 5 mg 5 mg PO DAILY 07/02/24 Unknown History tablet (Farxiga) meloxicam 15 mg tablet 15 mg PO DAILY 07/02/24 Unknown History omeprazole 40 mg capsule,delayed 40 mg PO DAILY #60 caps 07/02/24 Unknown Rx release Allergy/AdvReac Type Severity Reaction Status Date / Time No Known Allergies Allergy Verified 07/02/24 18:19 Social History Smoking Status: Current every day smoker tobacco type: cigarettes ROS ROS ED Constitutional Constitutional ED: Denies chills, fever(s), subjective or sweats Eyes Eyes: Denies blurry vision or change in vision ENT ENT ED: Denies rhinorrhea or sore throat Cardiovascular Cardiovascular: Denies chest pain or orthopnea Respiratory/Chest Respiratory/Chest: Denies cough, dyspnea, dyspnea on exertion or orthopnea Gastrointestinal Gastrointestinal: Reports abdominal pain and nausea; Denies constipation, diarrhea, melena or vomiting Genitourinary Genitourinary ED: Denies dysuria, hematuria or urinary frequency Musculoskeletal Musculoskeletal: Denies arthralgias, back pain or neck pain Integumentary Denies rash Hematologic/Lymphatic Hematologic/Lymphatic: Reports systems reviewed and no addt'l complaints, except as documented EXAM Physical Exam Const Vital Signs: 07/02/24 18:19 07/02/24 20:19 07/02/24 22:00 Temperature 98.0 F Temperature Source Oral Pulse Rate 102 H 88 Respiratory Rate 16 14 16 Blood Pressure 127/79 H 133/85 H Blood Pressure Mean 95 101 Pulse Ox 98 96 96 Oxygen Delivery Method Room Air Room Air Room Air Positive well nourished and well developed Constitutional Narrative: BMI is 41.3. Patient appears uncomfortable. He is not pale or diaphoretic. General Appearance ED: well developed; Negative for pallor HEENT Reports dry mucous membranes HEENT Narrative: Head is atraumatic no cephalic. Patient's ears have piercing. Nares patent. Mucosas dry. Mouth ED: Yes dry mucous membranes Mouth: dry mucous membranes Eyes PERRL and EOMs intact bilaterally General Eye ED: Negative for pale conjunctiva or scleral icterus Neck no lymphadenopathy, supple and no JVD Resp normal respiratory effort and clear to auscultation bilaterally Cardio regular rate, regular rhythm, S1 normal heart sound, S2 normal heart sound and no murmurs GI non-distended and no masses; Negative for non-tender or hepatosplenomegaly Auscultation: hypoactive bowel sounds Palpation: soft, tender RLQ and Humphrey's sign and guarding RUQ; Negative for splenomegaly or rebound tenderness present Back/Spine no CVA tenderness Extremity normal to inspection General Extremety ED: Negative for edema General Extremity: Negative for edema Neuro oriented x3 and CN's II-XII intact bilaterally Sensorium / Orientation: alert Psych mental status grossly normal Skin no rashes or lesions noted, no wounds and skin turgor normal General Skin Exam: elasticity normal; Negative for jaundice or pallor MDM MDM MDM Narrative Medical decision making narrative: With right upper quadrant pain with a clinical Humphrey sign radiating through to his back with nausea concerned that this represent cholelithiasis. This may also represent biliary colic, acalculous cholecystitis. There is no historical or physical findings suggest ascending cholangitis. This may also represent liver pathology i.e. hepatitis. Ultrasound was ordered. Ultrasound was delayed until 2200 since he had chips at 1600. Appropriate blood work was obtained which included lipase, liver profile and CBC. History is not consistent with obstructing ureteral stone. Therefore UA was not obtained. Lab Data Attestation: I reviewed the patient's lab results. Lab results narrative: White count is normal. Electrolyte panel is remarkable glucose of 140 with a normal CO2 anion gap. He does have history of type 2 diabetes. Lipase is normal. Hepatic is pending Labs: Laboratory Results - last 24 hr 07/02/24 19:06 WBC 7.9 RBC 5.65 Hgb 17.4 H Hct 50.7 MCV 89.7 MCH 30.8 MCHC 34.3 RDW Std Deviation 39.1 RDW Coeff of Camille 11.9 Plt Count 203 MPV 11.5 Immature Gran % (Auto) 0.600 Neut % (Auto) 49.9 Lymph % (Auto) 31.0 [place]estone % (Auto) 11.0 H Eos % (Auto) 6.4 H Baso % (Auto) 1.1 H Absolute Neuts (auto) 4.0 Absolute Lymphs (auto) 2.46 Nucleated RBC % 0 Sodium 139 Potassium 3.8 Chloride 108 H Carbon Dioxide 27.0 Anion Gap 3 L BUN 14 Creatinine 1.01 Estim Creat Clear Calc 129.12 Est GFR (MDRD) Af Amer 107 Est GFR (MDRD) Non-Af 89 BUN/Creatinine Ratio 13.9 Glucose 140 H Calcium 8.4 L Total Bilirubin 0.40 Direct Bilirubin 0.08 AST 18 ALT 44 Alkaline Phosphatase 94 Total Protein 7.1 Albumin 4.0 Globulin 3.1 Lipase 51 Radiography Diagnostic Testing: Clinical Impression(s) from Imaging Studies Gallbladder Ultrasound 07/02/24 18:37 IMPRESSION: 1. Gallbladder sludge with no evidence of a gallstone and no evidence of cholecystitis. 2. Fatty infiltration of the liver and hepatomegaly. Electronically Signed: Ramin Ansari DO at 23:29 EST Reading Location ID and State: [facility] / [place] Tel , Service support , Images were reviewed. I did not see stones. I am not competent after tell if patient has cholecystitis or not. Per radiology report there is no evidence of cholecystitis. Patient had some episode of chest pain after eating rich foods suspect that chest pain was due to his gallbladder as well. In my opinion patient not need to be admitted outpatient follow-up with Dr. Ponce who is on-call for surgery Management Discussion w/another healthcare provider: Staff Psychiatrist (Spoke to Dr. Ponce. Based on the information I relayed to her she is agreement patient is candidate for outpatient therapy. She asked that I place him on omeprazole. Prescription for omeprazole was dispensed.) Discharge Plan Triage Chief Complaint: Abd Pain ED Provider: Gurpreet Pearson Dx/Rx/DC Orders Clinical Impression: Sludge in gallbladder, Positive Humphrey Sign, BMI 40.0-44.9, adult, Type 2 diabetes mellitus, Elevated blood pressure reading with diagnosis of hypertension Instructions: Gallstones Dc Prescriptions: New omeprazole 40 mg capsule,delayed release(DR/EC) 40 mg PO DAILY Qty: 60 0RF No Action metformin 500 MG tablet 1,000 mg PO BIDCM pravastatin 40 MG tablet 40 mg PO DAILY bupropion HCl (smoking deter) 150 MG tablet extended release 12 hr 150 mg PO DAILY meloxicam 15 mg tablet 15 mg PO DAILY clotrimazole-betamethasone 1-0.05 % cream 1 applic topical BID dapagliflozin propanediol [Farxiga] 5 mg tablet 5 mg PO DAILY lisinopril 10 mg tablet 10 mg PO DAILY Trulicity 1.5 mg/0.5 mL pen injector 1.5 mg subcut QWEEK Primary Care Provider: Daryl Michael Referrals: Daryl Michael DO [Primary Care Provider] - Rubi Collins MD [Med Staff - Active Staff] - 1 Week Print Language: Djiboutian Disposition Disposition: Home, Self Care
[2024-07-02 20:19] VITALS: BP 133/85; PULSE 88; RESP 14; O2SAT 96
[2024-07-02 20:24] LABS: AST(SGOT) 18 U/L (15-37); Alanine Aminotransfer ALT/SGPT 44 U/L (16-61); Alkaline Phosphatase 94 U/L (45-117); Bilirubin, Direct 0.08 mg/dL (0.00-0.30); Globulin 3.1 g/dL (2.2-4.2); Protein, Total 7.1 g/dL (6.4-8.2)
[2024-07-02 22:00] VITALS: RESP 16; O2SAT 96
[2024-07-03] VITALS: BP 110/74; PULSE 82; RESP 16; TEMP 37; O2SAT 97
== END 2024-07-03 00:09 | disposition home or self-care (01) ==
PROVIDERS: Emergency Provider Emergency Medicine; PCP Student in an Organized Health Care Education/Training Program; Visit Provider Emergency Medicine
DX: R10.11 Right upper quadrant pain (principal); E11.9 Type 2 diabetes mellitus without complications; E78.00 Pure hypercholesterolemia, unspecified; I10 Essential (primary) hypertension; K83.8 Other specified diseases of biliary tract; R19.8 Other specified symptoms and signs involving the digestive system and abdomen; Z79.899 Other long term (current) drug therapy; Z79.84 Long term (current) use of oral hypoglycemic drugs; Z79.85 Long-term (current) use of injectable non-insulin antidiabetic drugs; F17.210 Nicotine dependence, cigarettes, uncomplicated
CPT/HCPCS: 76705; 80048; 80076; 83690; 85025; 99283; A4216; J2405

== ENCOUNTER 2024-07-20 09:45 | Emergency (ER) | payer OTHER, SELFPAY ==
[2024-07-20 09:45] VITALS: BP 132/99; PULSE 92; RESP 18; TEMP 36.8; O2SAT 96; BMI 40.1
--- NOTE | 2024-07-20 10:04 | EKG12_ITS ---
Test Reason : SOB Blood Pressure : */* mmHG Vent. Rate : 92 BPM Atrial Rate : 92 BPM P-R Int : 170 ms QRS Dur : 86 ms QT Int : 350 ms P-R-T Axes : 50 35 67 degrees QTcB Int : 432 ms Poor data quality, interpretation may be adversely affected Normal sinus rhythm Normal ECG Confirmed by Vladimir Do ([id number]), rewrite editor EDILSON REYES ([id number]) on 07/21/2024 6:31:33 AM Referred By: Confirmed By: Vladimir Do
--- NOTE | 2024-07-20 10:05 | ED.VIS.CHEST ---
HPI History of Present Illness Chief Complaint: Chest Pain Detail of Chief Complaint: Chest pain Informant: patient Onset/Context/Timing Onset: Yesterday Maximum Severity: 09/27 Narrative Narrative: Patient presents with chest pain that started last evening after he got out of the shower. Patient states that it was a sharp stabbing pain in the left upper chest and lasted till he fell asleep last night. This morning he states he woke up and felt relatively well but had more of a pressure sensation in the left chest radiating to his left shoulder. He had some mild nausea but no vomiting. He states he had similar pains in the past over the last several months had several visits to the ER for same. He thinks maybe it is anxiety. Patient states that he was prescribed some anxiety medicine but he is not taking it yet. Patient believes it is buspirone. Patient has history of hypertension, diabetes, and cholesterol. Patient states that his mother of a cardiac arrest at age 52 but she was a heavy alcoholic. Patient has not had heart history himself and is never had a stress test. Patient states that he does weightlifting and has not had any exertional symptoms. He denies recent travel or surgery. [facility] Medical History (Updated 07/20/24 @ 13:[address] Ramon Senior, ) Sludge in gallbladder BMI 40.0-44.9, adult Alcohol abuse Marijuana smoker Hypercholesterolemia Hypertension Diabetes Home Medications ?Medication ?Instructions ?Recorded ?Last Taken ?Type bupropion HCl (smoking deter) 150 150 mg PO DAILY 06/02/18 Unknown History mg tablet,12 hr sustained-release(smoking deterrent) metformin 500 mg tablet 1,000 mg PO BIDCM 06/02/18 Unknown History pravastatin 40 mg tablet 40 mg PO DAILY 06/02/18 Unknown History dulaglutide 1.5 mg/0.5 mL 1.5 mg subcut QWEEK 06/14/24 06/14/24 History subcutaneous pen injector (Trulicity) lisinopril 10 mg tablet 10 mg PO DAILY 06/14/24 Unknown History clotrimazole-betamethasone 1 1 applic topical BID 07/02/24 Unknown History %-0.05 % topical cream dapagliflozin propanediol 5 mg 5 mg PO DAILY 07/02/24 Unknown History tablet (Farxiga) meloxicam 15 mg tablet 15 mg PO DAILY 07/02/24 Unknown History omeprazole 40 mg capsule,delayed 40 mg PO DAILY #60 caps 07/02/24 Unknown Rx release Allergy/AdvReac Type Severity Reaction Status Date / Time No Known Allergies Allergy Verified 07/20/24 09:47 Family History (Updated 07/09/24 @ 13:23 by Bella Cristina) Mother Asthma Arthritis Heart disease CVA (cerebral vascular accident) Skin cancer Grandfather Arthritis Diabetes Skin cancer Surgical History (Updated 07/09/24 @ 13:21 by Bella Cristina) History of myringotomy Social History (Updated 07/09/24 @ 13:24 by Bella Cristina) Smoking Status: Current every day smoker tobacco type: cigarettes alcohol intake: former details: history of alcohol abuse-Quit 04/22/24 substance use type: marijuana ROS ROS ED Review of Systems ROS Unobtainable: other Constitutional Constitutional ED: Reports lethargy; Denies chills, fever(s), sweats or weight loss Eyes Eyes: Denies blurry vision, change in vision or diplopia ENT ENT ED: Denies rhinorrhea or sore throat Cardiovascular Cardiovascular: Reports chest pain; Denies orthopnea or racing heartbeat Respiratory/Chest Respiratory/Chest: Denies cough, dyspnea, dyspnea on exertion, orthopnea or sputum Gastrointestinal Gastrointestinal: Denies abdominal pain, diarrhea, nausea or vomiting Genitourinary Genitourinary ED: Denies dysuria, hematuria or urinary frequency Musculoskeletal Musculoskeletal: Denies arthralgias, back pain, myalgias or neck pain Integumentary Denies abscess, Abrasions or rash Neurologic Neurologic: Denies headache(s) or weakness Psychiatric Psychiatric: Denies anxiety, depression or suicidal thoughts Endocrine Endocrinology: Denies polydipsia, polyphagia or polyuria Hematologic/Lymphatic Hematologic/Lymphatic: Denies easy bleeding, easy bruising or lymphadenopathy Allergic/Immunologic Allergic/Immunologic ED: Denies mouth swelling, tongue swelling or urticaria EXAM Physical Exam Const Vital Signs: 07/20/24 09:45 07/20/24 10:20 07/20/24 11:00 Temperature 98.2 F Temperature Source Temporal Pulse Rate 92 83 Respiratory Rate 18 Blood Pressure 132/99 H 113/71 Blood Pressure Mean 110 85 Pulse Ox 96 92 Oxygen Delivery Method Room Air Room Air 07/20/24 12:00 07/20/24 13:00 Temperature Temperature Source Pulse Rate 78 78 Respiratory Rate 16 16 Blood Pressure 108/70 108/69 Blood Pressure Mean 82 82 Pulse Ox 98 98 Oxygen Delivery Method Room Air Room Air Positive well nourished and well developed General Appearance ED: well developed and NAD HEENT Reports TM's clear and moist mucous membranes normocephalic and atraumatic; Negative for trauma or tenderness Tympanic Membrane ED: Yes TM's clear Eyes PERRL and EOMs intact bilaterally General Eye ED: Negative for pale conjunctiva or scleral icterus Neck no lymphadenopathy, supple and no JVD General: Negative for tenderness Chest Wall inspection of chest normal and palpation of chest normal Chest: Negative for tenderness Resp normal respiratory effort and clear to auscultation bilaterally Effort and Inspection: Negative for respiratory distress or pain with movement Auscultation: Negative for rhonchi, wheezes or diminished lung sounds Cardio regular rate, regular rhythm, S1 normal heart sound, S2 normal heart sound and no murmurs Peripheral Pulses: pulses 2+ throughout GI normal to inspection, nondistended, normoactive bowel sounds, soft to palpation, non-tender, non-distended and no masses Back/Spine no CVA tenderness and no thoracic nor lumbar tenderness Extremity normal to inspection General Extremety ED: Negative for edema General Extremity: Negative for edema Neuro oriented x3, CN's II-XII intact bilaterally, no sensory deficits noted and gait normal Sensorium / Orientation: awake, alert, oriented to person, oriented to place and oriented to time Motor Exam: strength 5/5 throughout and strength abnormal Psych mental status grossly normal Skin no rashes or lesions noted and no wounds Heart Score History: Slightly/Non-Suspicious ECG: Normal Age: </= 45 years Risk Factors: >/= 3 Risk Factors or History of CAD Troponin: </= Normal Limit Score: 2 MDM MDM MDM Narrative Medical decision making narrative: Patient presents with chest discomfort started last night initially sharp stabbing and then more pressure-like this morning. He has had this type of discomfort multiple times in the past and thinks the common link has been anxiety. He has anxiety medication at home that he does not take. Patient does have history of diabetes, hypertension, cholesterol and mother of a cardiac arrest although it is unclear if this was related to coronary artery disease. EKG obtained on arrival showed a sinus rhythm with ventricular rate of 92 bpm with no acute ST segment changes. CBC with differential obtained showed a white count 7.2 with hemoglobin 18 and platelet count of 202. Chemistries unremarkable. Troponin was normal at 6 and D-dimer was normal at 0.27. Patient's heart score is a 2. Shared decision making. Patient's had multiple visits to the ER for similar complaints. He is never had any stress testing. Had a discussion about admission for possible stress testing versus delta troponin and outpatient follow-up for outpatient stress testing. Patient does not want to be admitted to the hospital and states that he will not stay. I did obtain a delta troponin which also was normal and actually slightly lower than the first. At this point patient advised to follow-up with his primary care physician within next 3 to 5 days. He has had no exertional symptoms. Advised to return if worsening pain, increasing shortness of breath, exertional symptoms, or condition should worsen anyway. Lab Data Attestation: I reviewed the patient's lab results. Labs: Laboratory Results - last 24 hr 07/20/24 07/20/24 10:10 12:31 WBC 7.2 RBC 5.85 Hgb 18.0 H* Hct 52.2 MCV 89.2 MCH 30.8 MCHC 34.5 RDW Std Deviation 38.7 RDW Coeff of Camille 11.8 Plt Count 202 MPV 11.3 Immature Gran % (Auto) 1.000 H Neut % (Auto) 47.7 Lymph % (Auto) 32.3 Sterling % (Auto) 11.3 H Eos % (Auto) 6.4 H Baso % (Auto) 1.3 H Absolute Neuts (auto) 3.4 Absolute Lymphs (auto) 2.32 Nucleated RBC % 0 Diff Path Review May foll D-Dimer Quant (PE/DVT) 0.27 Sodium 139 Potassium 4.0 Chloride 107 Carbon Dioxide 32.0 Anion Gap 1 L BUN 12 Creatinine 0.81 Estim Creat Clear Calc 163.47 Est GFR (MDRD) Af Amer 138 Est GFR (MDRD) Non-Af 114 BUN/Creatinine Ratio 14.8 Glucose 112 H Calcium 9.0 Troponin I High Sens 6 4 Radiography Diagnostic Testing: Clinical Impression(s) from Imaging Studies Chest X-Ray 07/20/24 10:25 IMPRESSION: No acute cardiopulmonary abnormality. No interval change. Electronically Signed: Víctor Calle MD at 10:41 EST , 1 view chest x-ray obtained interpreted by myself as no evidence of infiltrate or pneumothorax or acute disease process. Radiology in agreement. EKG Initial EKG: Attestation: I personally reviewed and interpreted this EKG as follows: Comments: Sinus rhythm with rate of 92 bpm with no acute ST segment changes Discharge Plan Triage Chief Complaint: Chest Pain ED Provider: Ramon Senior Dx/Rx/DC Orders Clinical Impression: Chest pain Instructions: ED Chest Pain, Uncertain Cause Prescriptions: No Action metformin 500 MG tablet 1,000 mg PO BIDCM pravastatin 40 MG tablet 40 mg PO DAILY bupropion HCl (smoking deter) 150 MG tablet extended release 12 hr 150 mg PO DAILY meloxicam 15 mg tablet 15 mg PO DAILY clotrimazole-betamethasone 1-0.05 % cream 1 applic topical BID dapagliflozin propanediol [Farxiga] 5 mg tablet 5 mg PO DAILY omeprazole 40 mg capsule,delayed release(DR/EC) 40 mg PO DAILY Qty: 60 0RF lisinopril 10 mg tablet 10 mg PO DAILY Trulicity 1.5 mg/0.5 mL pen injector 1.5 mg subcut QWEEK Primary Care Provider: Daryl Michael Referrals: Daryl Michael DO [Primary Care Provider] - 3-5 Days Print Language: Syriac Disposition Disposition: Home, Self Care
[2024-07-20] MEDS: Aspirin 81 MG TAB.CHEW 324 MG PO (10:17)
--- NOTE | 2024-07-20 10:25 | RAD_ITS ---
EXAM: XR CHEST, 1 VIEW CLINICAL INDICATION: chest pain TECHNIQUE: Frontal view of the chest. COMPARISON: XR Chest dated 06/15/2024 FINDINGS: LUNGS AND PLEURAL SPACES: Normal. No consolidation or edema. No pneumothorax. No effusion. HEART: Normal heart size. MEDIASTINUM: No mediastinal or hilar mass. BONES/JOINTS: No acute abnormality. RAD/Chest 1 View (Portable) IMPRESSION: No acute cardiopulmonary abnormality. No interval change. Electronically Signed: Víctor Calle MD at 10:41 EST ,
[2024-07-20 10:39] LABS: Absolute Lymphocyte Count 2.32 X10^3/uL (0.83-4.51); Absolute Neutrophil Count 3.4 X10^3/uL (2.0-7.7); Basophil# 0.09 X10^3/uL; Basophil% 1.3 % (0-1); Eosinophil# 0.46 X10^3/uL; Eosinophils% 6.4 % (0-5); Hematocrit 52.2 % (40-54); Lymphocyte # 2.32 X10^3/ul (0.83-4.51); Lymphocyte % 32.3 % (19-41); Mean Corp Hgb Conc 34.5 g/dL (32-36); Mean Corpuscular Hgb 30.8 pg (27.0-32.0); Mean Corpuscular Volume 89.2 fL (80-94); Mean Platelet Vol. 11.3 fl (6.2-12.0); Monocyte# 0.81 X10^3/uL; Monocyte% 11.3 % (0-10); NRBC Flagged by Analyzer 0 % (0-5); Neutrophil # 3.44 X10^3/uL (2.7-7.7); Neutrophil % 47.7 % (47-70); Platelet Count 202 K/mm3 (150-450); RBC Distribution Width CV 11.8 % (11.6-14.6); RBC Distribution Width SD 38.7 fl (35.1-43.9); Red Blood Count 5.85 M/mm3 (4.6-6.2); White Blood Count 7.2 K/mm3 (4.4-11.0)
[2024-07-20 10:40] LABS: Anion Gap 1 (5-15); BUN 12 mg/dL (7-18); BUN/Creat Ratio 14.8 RATIO (10-20); Chloride 107 mmol/L (98-107); Creatinine, Serum 0.81 mg/dL (0.70-1.30); EST Glomerular Filtration Rate 114 mL/min (>60); Est Glom Filt Rate - Afr Amer 138 mL/min (>60); Estimated Creatinine Clearance 163.47 ml/min; Glucose 112 mg/dL (74-106); Sodium Level 139 mmol/L (136-145); Troponin-I HS (w/2H Reflex) 6 pg/mL (3.0-78.0)
[2024-07-20 10:48] LABS: D-Dimer Quantitative (DVT/PE) 0.27 FEU/ug/m (0.27-0.49)
--- NOTE | 2024-07-20 10:48 | ED.RN ---
hemoglobin 18. aware
[2024-07-20 11:00] VITALS: BP 113/71; PULSE 83; O2SAT 92
[2024-07-20 12:00] VITALS: BP 108/70; PULSE 78; RESP 16; O2SAT 98
[2024-07-20 12:17] LABS: Reflex Troponin-HS? (from REC) Y
[2024-07-20 13:00] VITALS: BP 108/69; PULSE 78; RESP 16; O2SAT 98
[2024-07-20 13:01] LABS: Troponin-I HS 4 pg/mL (3.0-78.0)
[2024-07-22 09:07] LABS: Pathologist Review Reviewed
== END 2024-07-20 13:13 | disposition home or self-care (01) ==
PROVIDERS: Emergency Provider Emergency Medicine; PCP Student in an Organized Health Care Education/Training Program; Visit Provider Emergency Medicine
DX: R07.9 Chest pain, unspecified (principal); E11.9 Type 2 diabetes mellitus without complications; I10 Essential (primary) hypertension; E78.00 Pure hypercholesterolemia, unspecified; Z79.84 Long term (current) use of oral hypoglycemic drugs; Z79.899 Other long term (current) drug therapy; Z79.85 Long-term (current) use of injectable non-insulin antidiabetic drugs; F17.210 Nicotine dependence, cigarettes, uncomplicated
CPT/HCPCS: 71045; 80048; 84484; 85025; 85379; 93005; 99284; A4216

== ENCOUNTER 2024-08-23 06:56 | Day surgery (SDC) | payer BC, SELFPAY ==
[2024-08-23] VITALS (7 sets, daily range): BP systolic 93–123; BP diastolic 59–84; PULSE 76–88; RESP 14–18; TEMP 36.2–37; O2SAT 94–99; BMI 39.9
--- NOTE | 2024-08-23 07:21 | PRE.ANES_ITS ---
ASA Classification* ASA Classification ASA Classification: 2 Assessment & Plan Anesthesia* Anesthesia Assessment Anesthesia Assessment: Discussed sedation and/or anesthesia options, risks, benefits, and alternatives with patient/parents/legal guardian/POA. Questions invited. The patient/parents/legal guardian/POA seems to understand and agrees to proceed with anesthesia plan. Reviewed the physical assessment, medical history, allergy history and patient home medications list prior to surgery/procedure/anesthetic and documented any changes. Performed airway and anesthesia risk assessments. Anesthesia Type Anesthesia Type: MAC Anesthesia Focused Assessment* Airway Assessment Mouth opens: >3 cm Mallampati Score: II Focused Labs Anesthesia Preop lab: CBC WBC 7.2 K/mm3 (4.4-11.0) 07/20/24 10:10 RBC 5.85 M/mm3 (4.6-6.2) 07/20/24 10:10 Hgb 18.0 g/dL (13.0-16.5) H* 07/20/24 10:10 Hct 52.2 % (40-54) 07/20/24 10:10 Plt Count 202 K/mm3 (150-450) 07/20/24 10:10 CHEMISTRY Potassium 4.0 mmol/L (3.5-5.1) 07/20/24 10:10 Sodium 139 mmol/L (136-145) 07/20/24 10:10 BUN 12 mg/dL (7-18) 07/20/24 10:10 Creatinine 0.81 mg/dL (0.70-1.30) 07/20/24 10:10 Glucose 112 mg/dL (74-106) H 07/20/24 10:10 POC Glucose 140 mg/dL (70-110) H 06/09/18 07:23 COAG Pre-Assessment Diagnosis/Proposed Procedure Planned Operative Procedure(s): EGD Anesthesia History Anesthesia History - corporate banking officer: Anesthesia History - corporate banking officer Hx Hospitalization No 08/20/24 13:47 Any Problems With Anesthesia No 08/20/24 13:47 Cholinesterase deficiency No 08/20/24 13:47 You/Your Family Experience No 08/20/24 13:47 fever (hyperthermia) with Relationship Recent Exposure to Contagious No 06/09/18 07:25 Disease Does patient have nerve No 08/20/24 13:47 stimulator Patient instructed to have device shut off --Does patient have Pacemaker or ICD? When Was Last Pacemaker Check QUESTION #4 FULL TEXT: You/Your Family Experience fever (hyperthermia) with Anesthesia Last Oral Intake Last Oral intake: Last Oral Intake NPO since Meds taken in AM with sips of water? Meds patient instructed to take am of surgery PONV PONV - corporate banking officer: PONV - corporate banking officer Female No 08/20/24 13:47 HX of Motion Sickness Yes 08/20/24 13:47 HX of N/V After Surgery No 08/20/24 13:47 Non-Smoker No 08/20/24 13:47 Duration of Surgery greater No 08/20/24 13:47 than 60 minutes Number of Risk Factors 1 08/20/24 13:47 PONV Score Low Risk 08/20/24 13:47 Height & Weight Height & Weight: Anesthesia: Height & Weight Height 5 ft 9 in 07/20/24 09:45 Respiratory Assessment Respiratory Assessment - corporate banking officer: Respiratory Tract Infection Hx - corporate banking officer Hx Respiratory Tract Infection Yes: SINUS INFECTION 08/20/24 13:47 STOP Sleep Apnea STOP Sleep Apnea - corporate banking officer: STOP Sleep Apnea - corporate banking officer Hx Hypertension Yes: CONTROLLED WITH MED 08/20/24 13:47 Hx Sleep Apnea No 08/20/24 13:47 CPAP No 08/20/24 13:47 BIPAP No 08/20/24 13:47 Do you snore loudly (louder Yes 08/20/24 13:47 than talking or can be heard Do you often feel tired/ Yes 08/20/24 13:47 fatigued/ sleepy during daytime? Has anyone observed you stop Yes 08/20/24 13:47 breathing during sleep? STOP Results Positive 08/20/24 13:47 QUESTION #5 FULL TEXT : Do you snore loudly (louder than talking or can be heard through closed doors)? Tobacco Use History Tobacco Use History - corporate banking officer: Tobacco Use History - corporate banking officer Tobacco Use Smoking Status Current every day smoker 08/20/24 13:47 Hx Tobacco Use Yes 08/20/24 13:47 Years Smoking Packs Smoked per Day Smoking Cessation Date was within the last 15 years Hx Smoking Cessation Date Hx Smoking Cessation Counseling Hematologic Medial History Hematologic Hx - corporate banking officer: Hematologic Medical Hx - manager pipeline Hx of Blood Transfusion No 08/20/24 13:47 Hx of Transfusion in last 3 No 08/20/24 13:47 Months Date of Last Transfusion (if within last 3 months) Ever experience any problems No 08/20/24 13:47 with transfusion(s)? Specify any problems Hx of Preganancy in last 3 N/A 08/20/24 13:47 Months Nurse Filling Out Transfusion DSCHRIBER 08/20/24 13:47 & Questions: Date: 08/20/24 08/20/24 13:47 Time: 13:49 08/20/24 13:47 Patient unable to answer at this time (ie. confused, unrespo /Reproduction History /Reproductive History - corporate banking officer: /Reproductive Hx- corporate banking officer Hx Now No 08/20/24 13:47 Gestational Age (in weeks): EDC: Hx Hx Para Hx Section SAB No 08/20/24 13:47 [facility] Medical History Loss of hearing Wears glasses Depression Anxiety Dietary restriction Gastric reflux Smoker Pain Chest pain BMI 40.0-44.9, adult Sludge in gallbladder Alcohol abuse Marijuana smoker Hypercholesterolemia Hypertension Diabetes Home Medications ?Medication ?Instructions ?Recorded ?Last Taken ?Type bupropion HCl (smoking deter) 150 150 mg PO DAILY 06/02/18 Unknown History mg tablet,12 hr sustained-release(smoking deterrent) metformin 500 mg tablet 1,000 mg PO DAILY 06/02/18 Unknown History pravastatin 40 mg tablet 40 mg PO DAILY 06/02/18 Unknown History dulaglutide 1.5 mg/0.5 mL 1.5 mg subcut QWEEK 06/14/24 08/09/24 History subcutaneous pen injector (Trulicity) lisinopril 10 mg tablet 10 mg PO DAILY 06/14/24 Unknown History clotrimazole-betamethasone 1 1 applic topical BID 07/02/24 Unknown History %-0.05 % topical cream dapagliflozin propanediol 5 mg 5 mg PO DAILY 07/02/24 Unknown History tablet (Farxiga) meloxicam 15 mg tablet 15 mg PO DAILY 07/02/24 Unknown History omeprazole 40 mg capsule,delayed 40 mg PO DAILY #60 caps 07/02/24 Unknown Rx release Allergy/AdvReac Type Severity Reaction Status Date / Time No Known Allergies Allergy Verified 08/20/24 13:44 Family History Mother Asthma Arthritis Heart disease CVA (cerebral vascular accident) Skin cancer Grandfather Arthritis Diabetes Skin cancer Surgical History Hx of foot surgery History of myringotomy Social History Smoking Status: Current every day smoker tobacco type: cigarettes alcohol intake: former details: history of alcohol abuse-Quit 04/22/24 substance use type: marijuana Review of Systems (Anesthesia) ROS Narrative System reviewed and no additional complaints, except as documented.
[2024-08-23 07:46] LABS: Bedside Glucose 142 mg/dL (74-106)
--- NOTE | 2024-08-23 08:04 | H&P.OPEN ---
HPI - General General Date of Service: 08/23/24 HPI Narrative JOSIE BATRES, is a 38 M who presents for an EGD due to GERD. Initially patient's symptoms have been resolved with the omeprazole which she still takes daily. However last week he has been noticing some kind of right upper quadrant pain not really consistent on when it comes on. Office visit 07/09/2024 HPI HPI: 38-year-old male follow-up from ER due to abdominal pain, gallbladder sludge. Patient went to the ER due to right-sided abdominal pain and squeezing per patient along with some bloating and diarrhea x 1. Patient states he does occasionally get reflux. Patient had an ultrasound only showed a small amount of gallbladder sludge normal labs. Patient was sent home with omeprazole and states that that has improved his symptoms. [facility] Medical History Loss of hearing Wears glasses Depression Anxiety Dietary restriction Gastric reflux Smoker Pain Chest pain BMI 40.0-44.9, adult Sludge in gallbladder Alcohol abuse Marijuana smoker Hypercholesterolemia Hypertension Diabetes Home Medications ?Medication ?Instructions ?Recorded ?Last Taken ?Type bupropion HCl (smoking deter) 150 150 mg PO DAILY 06/02/18 08/22/24 History mg tablet,12 hr sustained-release(smoking deterrent) metformin 500 mg tablet 1,000 mg PO DAILY 06/02/18 08/22/24 History pravastatin 40 mg tablet 40 mg PO DAILY 06/02/18 08/22/24 History dulaglutide 1.5 mg/0.5 mL 1.5 mg subcut QWEEK 06/14/24 08/09/24 History subcutaneous pen injector (Trulicity) lisinopril 10 mg tablet 10 mg PO DAILY 06/14/24 08/22/24 History clotrimazole-betamethasone 1 1 applic topical BID 07/02/24 08/22/24 History %-0.05 % topical cream dapagliflozin propanediol 5 mg 5 mg PO DAILY 07/02/24 08/22/24 History tablet (Farxiga) meloxicam 15 mg tablet 15 mg PO DAILY 07/02/24 08/22/24 History omeprazole 40 mg capsule,delayed 40 mg PO DAILY #60 caps 07/02/24 08/23/24 Rx release Allergy/AdvReac Type Severity Reaction Status Date / Time No Known Allergies Allergy Verified 08/20/24 13:44 Family History Mother Asthma Arthritis Heart disease CVA (cerebral vascular accident) Skin cancer Grandfather Arthritis Diabetes Skin cancer Surgical History Hx of foot surgery History of myringotomy Social History Smoking Status: Current every day smoker tobacco type: cigarettes alcohol intake: former details: history of alcohol abuse-Quit 04/22/24 substance use type: marijuana Past Medical/Surgical History Planned Operation Planned Operative Procedure(s): EGD S.O.S: No Previous Hospitalizations/Surgeries HX Hospitalizations: No HX of Surgeries: TONSILLECTOMY BMT X13 FOOT SURGERY FOR STAPH INFECTION 2016 Any Problems With Anesthesia: No You/Your Family Experience Fever (Hyperthermia) With Anes: No Cholinesterase deficiency: No Cardiovascular Hx Chest Pain within Last 2 months: No Hx of Irregular Heartbeat and/or Afib: No Hx Heart Attack: No Hx Congestive Heart Failure: No Hx Rheumatic Fever: No Hx Hypertension: Yes (CONTROLLED WITH MED) Hx Internal Defibrillator: No Hx Pacemaker: No Hx Cardiac Catheterization: No Hx Cardiac Surgery/Stents/Etc.: No (.) Hx Stress Test: No Hx Pain in Legs when Walking/Leg Cramps: No Respiratory Chronic Cough: No HX of Shortness of Breath: Yes (SOB WITH 2 FLIGHTS OF STAIRS) Hoarseness: No Hx Chronic Obstructive Pulmonary Disease (COPD): No Hx Asthma: No Hx Emphysema: No Hx Sleep Apnea: No CPAP: No BIPAP: No Hx Respiratory Tract Infection/Cold (presently): Yes (SINUS INFECTION) Do You Snore Loudly (louder than talking or can be heard): Yes Do You Often Feel Tired/ Fatigued/ Sleepy Dring Daytime?: Yes Has Anyone Observed You Stop Breathing During Sleep?: Yes Result (for STOP score): Positive Hx Smoking: Yes (1/2-1PPD FOR 12 YRS) Smoking Status: Current every day smoker Gastrointestinal Hx Gastrointestinal Disorders: No Hx Gastrointestinal Bleed: No Hx Ulcer: No Hx Hiatal Hernia: No Difficulty Chewing/Swallowing: No Special diet followed at home: No Hx Unplanned Weight Loss of 20#: No HX Unplanned Weight Gain of 20#: No Neurological Hx Seizures: No HX Syncope/Blackout Spells/Unconsciousness: No Hx Transient Ischemic Attacks (TIA): No Hx Multiple Sclerosis: No Hx Parkinson's Disease: No Hx Head/Neck Injury: No Hx Headaches: No Hx Back Injury/Pain: No Recent Onset of Speech Difficulty: No Restless Legs: No Does patient have nerve stimulator: No Blood Disorder Hx Leukemia: No Bleeding Tendencies: No Hx Deep Vein Thrombosis: No Hx High Cholesterol: Yes (ON MED) Blood Transmitted Disease: No Hx Hepatitis: No Hx Cirrhosis: No Hx Anemia: No Hx Blood Disorders: No Reproduction : No Genitourinary Hx Renal Disease: No Musculoskeletal Hx Arthritis: No Hx Rheumatoid Arthritis: No Hx Gout: No Recent Onset of an Orthopedic Problem: No Endocrine Hx Diabetes: Yes Insulin: No Thyroid Disease: No Hx Steroid Therapy: Yes (DOSE HELGA 6 MONTHS AGO) Psycho/Social Hx Substance Use: Yes (MARIJUNA/LAST USE 2 WEEKS) Hx Alcohol Use: Yes (OCC) Hx Anxiety: No Hx Depression: Yes (ON MED) Mental Illness: No Hx Dementia: No Miscellaneous Hx Cancer: No Recent Exposure to Contagious Disease: No Hx of C-Diff: No Any Loose Teeth: No Allergies No Known Allergies Allergy (Verified 08/20/24 13:44) Discharge Is Pt Admitted From a Long-Term, or a Prison: No After D/C, Where Do you Plan to Go: Return Home Vital Signs Vital Signs Vital Signs: 08/23/24 07:22 08/23/24 07:23 Temperature 97.1 F L Temperature Source Temporal Pulse Rate 88 Respiratory Rate 18 Respiratory Pattern Normal Blood Pressure 123/84 H Blood Pressure Mean 97 Blood Pressure Source Monitor Blood Pressure Position Sitting Blood Pressure Location Left Arm Pulse Ox 97 Oxygen Delivery Method Room Air Weight Weight: 262 lb 5.601 oz Body Mass Index (BMI) 39.9 Physical Exam Const alert, oriented x3 and no apparent distress HEENT normocephalic and head/scalp atraumatic Resp normal respiratory effort Cardio regular rate GI soft to palpation and non-tender; Negative for non-distended Palpation: Negative for guarding Extremity no clubbing, cyanosis or edema Skin no rashes or lesions noted Neuro CN's II-XII intact bilaterally Psych mental status grossly normal Assessment & Plan Assessment/Plan (1) GERD (gastroesophageal reflux disease): Surgery Risks - Colonoscopy I discussed with the patient the risks of the procedure: Yes Risks Include but are not Limited To: Plan for an EGD Risks include but are not limited to: Bleeding, perforation requiring further surgery.
--- NOTE | 2024-08-23 08:15 | EGD_PTH ---
PATIENT: JOSIE BATRES LOC: EN U#:[id number] AGE/SX: 38/M ROOM: RE08/23/[address]: Dr. Rubi Collins MD : 1985 BED: DIS: 08/23/2024 SPEC #: [id number] RECD: 08/23/24 14:21 STATUS: JUSTIN BLANCA #: [id number] BELKIS: 08/23/24 08:[address]: Rubi Collins DEPT: SURGICAL PATHOLOGY RECD BY: Elena Tran ENTERED: 08/24/24 10:45 SP TYPE: EGD BIOPSY OT DR: Dr. Daryl Michael, DO Tissues: Gastric mucous membrane Procedures: Surgery Specimen Level IV HEADER OPERATION: EGD PRE-OP DIAGNOSIS: GERD TISSUE SUBMITTED: Antrum biopsy MICROSCOPIC DIAGNOSIS Antrum, biopsy: Mild gastritis. See microscopic description and comment. 08/25/2024 COMMENT The results of immunohistochemistry for Helicobacter pylori will be reported separately ([id number]). MICROSCOPIC DESCRIPTION Slides are reviewed. The specimen shows fragments of gastric mucosa with chronic inflammatory cell infiltrates in the lamina propria consisting of lymphocytes and plasma cells, consistent with mild chronic gastritis. GROSS DESCRIPTION Received in fixative is one container labeled with the patient's name and designated Antrum biopsy. The specimen consists of one irregular fragment of light chavez soft tissue that measures 0.5 x 0.5 x 0.1 cm. The specimen is totally submitted in one cassette. DANNYTanner 08/24/2024 TC:3 CPT:34986
--- NOTE | 2024-08-23 08:15 | IMM_PTH ---
PATIENT: JOSIE BATRES LOC: EN U#:[id number] AGE/SX: 38/M ROOM: RE08/23/[address]: Dr. Rubi Collins MD : 1985 BED: DIS: 08/23/2024 SPEC #: [id number] RECD: 08/24/24 11:52 STATUS: JUSTIN REQ #: [id number] BELKIS: 08/23/24 08:[address]: Rubi Collins DEPT: IMMUNOHISTOCHEMISTRY RECD BY: Samuel Balderas ENTERED: 08/24/24 11:52 SP TYPE: IMMUNO OTHR DR: Dr. Daryl Michael DO Tissues: Gastric mucous membrane Procedures: H Pylori (initial) PHYSICIAN & INSTITUTION [place] [id number] SPECIMEN INFORMATION: Tissue Source: Antrum biopsy Clinical Info: GERD Specimen Number: [id number] CPT code: 41095 METHODOLOGY: Deparaffinized sections of prefer/formalin-fixed tissue or PAP/DQ stained slides are incubated with monoclonal/polyclonal antibodies/oligonucleotide probes. Localization is made via biotin free immunoperoxidase method. Appropriate controls are performed and reacted as expected. Results on target cell population are indicated in the following table: RESULTS: ANTIBODY / CLONE RESULT H Pylori (polyclonal) negative These tests were developed and their performance characteristics determined by [facility]. They may not have been cleared or approved by the U.S. Food and Drug Administration. The FDA has determined that such clearance or approval is not necessary. The above immunohistochemical/dualISH markers are ordered and reviewed by the Pathologist. INTERPRETATION: Antrum, biopsy: Negative for Helicobacter pylori organisms. 08/25/2024
--- NOTE | 2024-08-23 08:32 | OP.EGD_ITS ---
Patient Name: Conor Russell Procedure Date: 08/23/2024 7:50 AM Date of : 1985 Age: 38 Procedure: Upper GI endoscopy Indications: Heartburn Providers: Rubi Collins MD Referring MD: Daryl Michael Medicines: Monitored Anesthesia Care Patient Profile: This is a 38 year old male. Complications: No immediate complications. Procedure: Pre-Anesthesia Assessment: - Prior to the procedure, a History and Physical was performed, and patient medications and allergies were reviewed. The patient's tolerance of previous anesthesia was also reviewed. The risks and benefits of the procedure and the sedation options and risks were discussed with the patient. All questions were answered, and informed consent was obtained. Prior Anticoagulants: The patient has taken no anticoagulant or antiplatelet agents. ASA Grade Assessment: Per anesthesia. After reviewing the risks and benefits, the patient was deemed in satisfactory condition to undergo the procedure. After obtaining informed consent, the endoscope was passed under direct vision. Throughout the procedure, the patient's blood pressure, pulse, and oxygen saturations were monitored continuously. The Endoscope was introduced through the mouth, and advanced to the second part of duodenum. The upper GI endoscopy was accomplished without difficulty. The patient tolerated the procedure well. Scope In: 8:19:06 AM Scope Out: 8:23:32 AM Total Procedure Duration Time 0 hours 4 minutes 26 seconds Findings: The Z-line was variable and was found 40 cm from the incisors. Diffuse moderately erythematous mucosa without bleeding was found in the gastric antrum. Biopsies were taken with a cold forceps for histology. Biopsies were taken with a cold forceps for Helicobacter pylori cultures. The examined duodenum was normal. The cardia and gastric fundus were normal on retroflexion. Bilious fluid was found in the gastric antrum. The exam was otherwise without abnormality. Impression: - Z-line variable, 40 cm from the incisors. - Erythematous mucosa in the antrum. Biopsied. - Normal examined duodenum. - Bilious gastric fluid. - The examination was otherwise normal. Recommendation: - Await pathology results. - Discharge patient to home (ambulatory). - Resume previous diet. - Continue present medications. - Use sucralfate tablets 1 gram PO QID. Procedure Code(s): --- Professional --- 79603, Esophagogastroduodenoscopy, flexible, transoral; with biopsy, single or multiple Diagnosis Code(s): --- Professional --- K22.89, Other specified disease of esophagus K31.89, Other diseases of stomach and duodenum R12, Heartburn CPT copyright 2021 [employer]. All rights reserved. The codes documented in this report are preliminary and upon scrap sorter review may be revised to meet current compliance requirements. MD Rubi Beltran MD 08/23/2024 8:32:08 AM This report has been signed electronically. Number of Addenda: 0 Note Initiated On: 08/23/2024 7:50 AM
--- NOTE | 2024-08-23 08:32 | OP.CCLET_ITS ---
08/23/2024 Daryl Michael [address] [place] [address] Re : Upper GI endoscopy procedure for Conor De La Cruzrow Dear Dr. Michael This procedure was performed on Friday, August 23, 2024. My impressions and recommendations are as follows: Impressions : - Z-line variable, 40 cm from the incisors. - Erythematous mucosa in the antrum. Biopsied. - Normal examined duodenum. - Bilious gastric fluid. - The examination was otherwise normal. Recommendations : - Await pathology results. - Discharge patient to home (ambulatory). - Resume previous diet. - Continue present medications. - Use sucralfate tablets 1 gram PO QID. My findings are described in the full procedure note, which is enclosed. If I can be of further assistance, please feel free to contact me at Doctor phone number(s): , Work: . Sincerely, MD Rubi Beltran MD 08/23/2024 8:32:08 AM This report has been signed electronically.
--- NOTE | 2024-08-23 08:35 | PCM.POST.ANE ---
Anesthesia: Postop Eval I Current Vital Signs Temperature: 97.2 F Pulse Rate: 76 Blood Pressure: 97/59 Respiratory Rate: 14 Pulse Ox: 99 Oxygen Delivery Method: Room Air Assessment Airway patent: Yes Spontaneous unlabored respirations: Yes Mental status: Awake and Calm nausea: No Vomiting: No Anesthesia Complication: No Fluid Hydration Crystalloid volume administer (ml): 20 Total IV fluid infused: 20 Progress Note Anesthesia document: Postop Eval 1 completed: Yes
--- NOTE | 2024-08-23 10:40 | PCM.POSTANE2 ---
Anesthesia Postop Eval I Sum Postop Eval Completion status Anesthesia document: Postop Eval 1 completed: Yes Anesthesia Postop Eval I Summary Anesthesia Postop Eval I Summary: Anesthesia Postop Eval I: Assessment Summary Airway patent Yes 08/23/24 08:36 [email or web address] Spontaneous unlabored Yes 08/23/24 08:36 [email or web address] respirations Mental status Awake,Calm 08/23/24 08:36 [email or web address] nausea No 08/23/24 08:36 [email or web address] Vomiting No 08/23/24 08:36 [email or web address] Anesthesia Postop Eval I: Fluid Summary Crystalloid volume administer 20 08/23/24 08:36 [email or web address] (ml) Colloids volume administered ( ml) Blood Product volume administered (ml) Total IV fluid infused 20 08/23/24 08:36 [email or web address] Anesthesia Postop Eval I: Summary Notes Anesthesia Complication No 08/23/24 08:36 [email or web address] Anesthesia Complication Comment: Post-operative progress note Anesthesia: Postop Eval II Evaluation Mental status: Awake Pain Level: 0 nausea: No Vomiting: No
== END 2024-08-23 09:28 | disposition home or self-care (01) ==
LOC: EN 06:58 → AC 06:59
PROVIDERS: PCP Student in an Organized Health Care Education/Training Program; Referring Provider Student in an Organized Health Care Education/Training Program; Visit Provider Surgery
PROC: 0DJ08ZZ Inspection of Upper Intestinal Tract, Via Natural or Artificial Opening Endoscopic (ICD-10-PCS; CPT 43235; principal; 2024-08-23 08:10)
DX: K21.9 Gastro-esophageal reflux disease without esophagitis (principal); E11.9 Type 2 diabetes mellitus without complications; E78.00 Pure hypercholesterolemia, unspecified; K22.89 Other specified disease of esophagus; F17.210 Nicotine dependence, cigarettes, uncomplicated; Z79.84 Long term (current) use of oral hypoglycemic drugs; I10 Essential (primary) hypertension; Z79.85 Long-term (current) use of injectable non-insulin antidiabetic drugs; F32.A Depression, unspecified; Z79.899 Other long term (current) drug therapy; K29.70 Gastritis, unspecified, without bleeding; K31.89 Other diseases of stomach and duodenum
CPT/HCPCS: 43239; 82962; 88305; 88342; A4216; J2405

== ENCOUNTER 2024-08-28 02:06 | Emergency (ER) | payer BC, SELFPAY ==
[2024-08-28 02:06] VITALS: BP 142/87; PULSE 85; RESP 16; TEMP 36.5; O2SAT 95; BMI 39.9
[2024-08-28] MEDS: Ondansetron 4 MG/2 ML Vial IV (02:22)
[2024-08-28] MEDS: 0.9% Normal Saline (1000mL) 1,000 ML 1000 ML IV (02:22)
[2024-08-28 02:23] LABS: Absolute Lymphocyte Count 2.67 X10^3/uL (0.83-4.51); Absolute Neutrophil Count 5.5 X10^3/uL (2.0-7.7); Basophil# 0.13 X10^3/uL; Basophil% 1.3 % (0-1); Eosinophil# 0.46 X10^3/uL; Eosinophils% 4.7 % (0-5); Hematocrit 50.3 % (40-54); Hemoglobin 17.6 g/dL (13.0-16.5); Lymphocyte # 2.67 X10^3/ul (0.83-4.51); Lymphocyte % 27.4 % (19-41); Mean Corpuscular Hgb 30.2 pg (27.0-32.0); Mean Corpuscular Volume 86.3 fL (80-94); Monocyte% 9.2 % (0-10); NRBC Flagged by Analyzer 0 % (0-5); Neutrophil # 5.52 X10^3/uL (2.7-7.7); Neutrophil % 56.6 % (47-70); Platelet Count 240 K/mm3 (150-450); RBC Distribution Width CV 11.7 % (11.6-14.6); RBC Distribution Width SD 36.9 fl (35.1-43.9); Red Blood Count 5.83 M/mm3 (4.6-6.2); White Blood Count 9.8 K/mm3 (4.4-11.0)
--- NOTE | 2024-08-28 02:27 | EX.ED.DYSGE1 ---
HPI History of Present Illness Chief Complaint: Nausea/Vomiting Detail of Chief Complaint: Nausea, dry heaves, not feeling well Informant: patient Onset/Context/Timing Onset: Yesterday (2299) Context: Sudden Onset Timing: Continuous and Waxes and wanes Quality: Nausea, dry heaves, aches and not feeling well Location: Generalized Current Severity: Mild Maximum Severity: Moderate Worsened by: Nothing specific Relieved by: Nothing Associated Symptoms Associated Symptoms: Denies fever or chills. Narrative Narrative: Patient is a 38-year-old male. He presents because of not feeling well, vague headache, congestion, nausea with dry heaves, myalgias and arthralgias and transient chest discomfort described as a rising sensation. There is no associated symptoms with the chest discomfort. Patient denies fever or chills. Eyes double vision blurred vision loss of vision. Eyes barrow ears decreased hearing. Denies sore throat. He presently denies any chest discomfort or shortness of breath. Denies cough. He denies dysuria, frequency, urgency or hematuria. He denies polyuria or polydipsia. He does have history of type 2 diabetes. Patient is under the care of his doctor for a fungal infection chest wall. Prior similar symptoms: No Recent Illness/Hospitalization: Yes (Seen June by me for sludge in his GB referred to surgery for EGD) [facility] Medical History Loss of hearing Wears glasses Depression Anxiety Dietary restriction Gastric reflux Smoker Pain Chest pain BMI 40.0-44.9, adult Sludge in gallbladder Alcohol abuse Marijuana smoker Hypercholesterolemia Hypertension Diabetes Home Medications ?Medication ?Instructions ?Recorded ?Last Taken ?Type pravastatin 40 mg tablet 40 mg PO DAILY 06/02/18 08/22/24 History dulaglutide 1.5 mg/0.5 mL 1.5 mg subcut QWEEK 06/14/24 08/09/24 History subcutaneous pen injector (Trulicity) lisinopril 10 mg tablet 10 mg PO DAILY 06/14/24 08/22/24 History clotrimazole-betamethasone 1 1 applic topical BID 07/02/24 08/22/24 History %-0.05 % topical cream dapagliflozin propanediol 5 mg 5 mg PO DAILY 07/02/24 08/22/24 History tablet (Farxiga) meloxicam 15 mg tablet 15 mg PO DAILY 07/02/24 08/22/24 History omeprazole 40 mg capsule,delayed 40 mg PO DAILY #60 caps 07/02/24 08/23/24 Rx release sucralfate 1 gram tablet 1 g PO 4X/DAY #56 tabs 08/23/24 Unknown Rx bupropion HCl 150 mg 24 hr tablet, 150 mg PO DAILY 08/28/24 Unknown History extended release buspirone 5 mg tablet 5 mg PO PRN PRN anxiety 08/28/24 Unknown History gabapentin 100 mg capsule 100 mg PO TID PRN PRN pain 08/28/24 Unknown History metaxalone 800 mg tablet 800 mg PO 4X/DAY PRN PRN muscle 08/28/24 Unknown History spasm metformin 500 mg tablet,extended 1,000 mg PO BID 08/28/24 Unknown History release 24 hr nystatin 100,000 unit/gram topical 1 applic topical BID 08/28/24 Unknown History powder ondansetron 4 mg disintegrating 4 mg PO Q8H PRN PRN Nausea #6 tabs 08/28/24 Unknown Rx tablet Allergy/AdvReac Type Severity Reaction Status Date / Time No Known Allergies Allergy Verified 08/28/24 02:07 Family History Mother Asthma Arthritis Heart disease CVA (cerebral vascular accident) Skin cancer Grandfather Arthritis Diabetes Skin cancer Surgical History Hx of foot surgery History of myringotomy Social History Smoking Status: Current every day smoker tobacco type: cigarettes alcohol intake: former details: history of alcohol abuse-Quit 04/22/24 substance use type: marijuana ROS ROS ED Constitutional Constitutional ED: Denies chills, fever(s), subjective or sweats Eyes Eyes: Denies blurry vision, change in vision or diplopia ENT ENT ED: Reports rhinorrhea and other Details: Decreased hearing, which is chronic. ; Denies ear pain or sore throat Cardiovascular Cardiovascular: Reports chest pain; Denies palpitations or racing heartbeat Respiratory/Chest Respiratory/Chest: Denies cough, dyspnea or dyspnea on exertion Gastrointestinal Gastrointestinal: Reports nausea and vomiting; Denies abdominal pain or diarrhea Genitourinary Genitourinary ED: Denies dysuria, hematuria or urinary frequency Musculoskeletal Musculoskeletal: Reports arthralgias and myalgias; Denies back pain Integumentary Reports rash Neurologic Neurologic: Reports headache(s); Denies paresthesias Endocrine Endocrinology: Denies cold intolerance, heat intolerance, polydipsia or polyuria Hematologic/Lymphatic Hematologic/Lymphatic: Reports systems reviewed and no addt'l complaints, except as documented EXAM Physical Exam Const Vital Signs: 08/28/24 02:06 08/28/24 02:11 Temperature 97.7 F L Temperature Source Oral Pulse Rate 85 Respiratory Rate 16 Respiratory Effort Normal Respiratory Pattern Normal Blood Pressure 142/87 H Blood Pressure Mean 105 Pulse Ox 95 Oxygen Delivery Method Room Air Positive well nourished Constitutional Narrative: BMI is 40.0. General Appearance ED: NAD; Negative for cyanotic, diaphoretic or pallor HEENT Reports dry mucous membranes HEENT Narrative: Uvula is midline. There is no deviation tongue or protrusion. Ears normal. Nares patent. Mouth ED: Yes dry mucous membranes Mouth: dry mucous membranes Eyes PERRL and EOMs intact bilaterally General Eye ED: Negative for pale conjunctiva or scleral icterus Resp normal respiratory effort and clear to auscultation bilaterally Cardio regular rate, regular rhythm, S1 normal heart sound, S2 normal heart sound and no murmurs GI normal to inspection, nondistended, normoactive bowel sounds, non-tender, non-distended and no masses; Negative for hepatosplenomegaly Extremity normal to inspection Extremity Narrative: Patient has abrasion over the MCP joint of his long finger and ring finger. There is no evidence of infection. General Extremety ED: Negative for edema or tenderness General Extremity: Negative for edema Neuro oriented x3, CN's II-XII intact bilaterally and no sensory deficits noted Sensorium / Orientation: alert Psych mental status grossly normal Skin no rashes or lesions noted, no wounds and No skin turgor normal General Skin Exam: Negative for jaundice or pallor MDM MDM MDM Narrative Medical decision making narrative: Suspect patient has a viral illness. Since patient is diabetic with multiple medical problems we will obtain a BMP to assess glucose, renal function and electrolytes. CBC was obtained to assess white count differential. Clinically patient appears dehydrated. Will have nurse administer 1 L of normal saline wide open and he received Zofran for his nausea with dry heaves. His blood pressure is slightly elevated 142/87. This is not significant. He is afebrile. History & Record Review Additional record(s) reviewed:: Prior outpatient record (Reviewed Dr. Ponce's EGD report which revealed erythema of the mucosa.), Prior ED visit (Prior ER visits documented under the HPI narrative) and Prior labs Lab Data Attestation: I reviewed the patient's lab results. Lab results narrative: CBC is remarkable elevated hemoglobin. Has had elevated hemoglobin in the past. Electrolyte panel reveals mild hyponatremia and hypokalemia. BUN and creatinine are normal. Glucose is elevated 164 with a normal CO2 anion gap. Labs: Laboratory Results - last 24 hr 08/28/24 02:17 WBC 9.8 RBC 5.83 Hgb 17.6 H Hct 50.3 MCV 86.3 MCH 30.2 MCHC 35.0 RDW Std Deviation 36.9 RDW Coeff of Camille 11.7 Plt Count 240 MPV 11.0 Immature Gran % (Auto) 0.800 Neut % (Auto) 56.6 Lymph % (Auto) 27.4 [place] % (Auto) 9.2 Eos % (Auto) 4.7 Baso % (Auto) 1.3 H Absolute Neuts (auto) 5.5 Absolute Lymphs (auto) 2.67 Nucleated RBC % 0 Sodium 134 L Potassium 3.3 L Chloride 103 Carbon Dioxide 24.0 Anion Gap 7 BUN 9 Creatinine 0.79 Estim Creat Clear Calc 162.29 Est GFR (MDRD) Af Amer 142 Est GFR (MDRD) Non-Af 117 BUN/Creatinine Ratio 11.3 Glucose 164 H Calcium 9.0 Treatment and Re-Evaluation :: Patient was reassessed at 0305. Patient states his nausea has dissipated significantly. Will discharge with prescription for Zofran. Discharge Plan Triage Chief Complaint: Nausea/Vomiting ED Provider: Gurpreet Pearson Dx/Rx/DC Orders Clinical Impression: Nausea and vomiting, Type 2 diabetes mellitus with hyperglycemia, Acute hypokalemia, Hyponatremia, Viral illness, History of hypertension, History of hypercholesterolemia Instructions: ED Vomiting (Adult) Prescriptions: New ondansetron 4 mg tablet,disintegrating 4 mg PO Q8H PRN PRN (Reason: Nausea) Qty: 6 0RF No Action pravastatin 40 MG tablet 40 mg PO DAILY meloxicam 15 mg tablet 15 mg PO DAILY clotrimazole-betamethasone 1-0.05 % cream 1 applic topical BID dapagliflozin propanediol [Farxiga] 5 mg tablet 5 mg PO DAILY omeprazole 40 mg capsule,delayed release(DR/EC) 40 mg PO DAILY Qty: 60 0RF sucralfate 1 gram tablet 1 g PO 4X/DAY Qty: 56 1RF Rx Instructions: Take 1 hour before meals and at bedtime bupropion HCl 150 mg tablet extended release 24 hr 150 mg PO DAILY buspirone 5 mg tablet 5 mg PO PRN PRN (Reason: anxiety) gabapentin 100 mg capsule 100 mg PO TID PRN PRN (Reason: pain) nystatin 100,000 unit/gram powder 1 applic topical BID metformin 500 mg tablet extended release 24 hr 1,000 mg PO BID metaxalone 800 mg tablet 800 mg PO 4X/DAY PRN PRN (Reason: muscle spasm) lisinopril 10 mg tablet 10 mg PO DAILY Trulicity 1.5 mg/0.5 mL pen injector 1.5 mg subcut QWEEK Primary Care Provider: Daryl Michael Referrals: Daryl Michael, DO [Primary Care Provider] - 3-5 Days if not improving Print Language: Slovenian Disposition Disposition: Home, Self Care
[2024-08-28 02:40] LABS: Anion Gap 7 (5-15); BUN 9 mg/dL (7-18); BUN/Creat Ratio 11.3 RATIO (10-20); Chloride 103 mmol/L (98-107); Creatinine, Serum 0.79 mg/dL (0.70-1.30); EST Glomerular Filtration Rate 117 mL/min (>60); Est Glom Filt Rate - Afr Amer 142 mL/min (>60); Estimated Creatinine Clearance 162.29 ml/min; Glucose 164 mg/dL (74-106); Potassium 3.3 mmol/L (3.5-5.1); Sodium Level 134 mmol/L (136-145)
[2024-08-28 03:13] VITALS: BP 135/72; PULSE 84; RESP 18; TEMP 36.6; O2SAT 96
== END 2024-08-28 03:16 | disposition home or self-care (01) ==
PROVIDERS: Emergency Provider Emergency Medicine; PCP Student in an Organized Health Care Education/Training Program; Visit Provider Emergency Medicine
DX: R11.2 Nausea with vomiting, unspecified (principal); E11.65 Type 2 diabetes mellitus with hyperglycemia; I10 Essential (primary) hypertension; E87.6 Hypokalemia; E87.1 Hypo-osmolality and hyponatremia; B34.9 Viral infection, unspecified; E78.00 Pure hypercholesterolemia, unspecified; Z79.85 Long-term (current) use of injectable non-insulin antidiabetic drugs; Z79.899 Other long term (current) drug therapy; F32.A Depression, unspecified; K21.9 Gastro-esophageal reflux disease without esophagitis; Z79.84 Long term (current) use of oral hypoglycemic drugs; F41.9 Anxiety disorder, unspecified; F17.210 Nicotine dependence, cigarettes, uncomplicated; E86.0 Dehydration